=== PATIENT | female | born 1955 | race Caucasian/White ===

== ENCOUNTER 2020-11-29 08:27 | Emergency (ER) | payer MEDICARE, SELFPAY ==
--- NOTE | ~2020-11-29 | XR_ITS ---
EXAMINATION: XR shoulder RT min 2V EXAM DATE: 11/29/2020 09:23 INDICATION: No known recent injury provided at this time. Pain of the right shoulder. TECHNIQUE: The following right shoulder projections obtained: frontal projection with internal rotati on, frontal projection with external rotation, Grashey, and scapular Y view (4+ views). There is no prior study for comparison. FINDINGS: There is small amount of well-corticated ossification along the inferior margin of the gl enoid, could be joint body or calcific tendinosis. This finding has been indicated, marked on the exa mination for review, clinical correlation. There is mild glenohumeral and acromioclavicular joint [place] osteoarthritis. IMPRESSION: 1. Mild right shoulder osteoarthritis. 2. Small ossification, possible rotator cuff calcific tendinosis or joint body. Reviewed, dictated and finalized at location B. 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 Mild right shoulder osteoarthritis. 2. Small ossification, possible rotator cuff calcific tendinosis or joint body .
[2020-11-29 08:46] VITALS: BP 149/91; PULSE 94; RESP 16; TEMP 36.6; O2SAT 98
--- NOTE | 2020-11-29 08:56 | ED.UPPEXIN ---
HPI - Extremity Injury (Upper) General Chief Complaint: Extremity Injury, Upper Stated Complaint: right shoulder pain Time Seen by Provider: 11/29/20 08:55 Source: patient and family Mode of arrival: ambulatory Limitations: no limitations History of Present Illness HPI narrative: Patient is 65 years old white female presents with right shoulder pain for the last 3 months, got worse last night while trying to open a medicine bottle. Patient report that the pain at the lateral side of the deltoid area, worse with movement, better at rest. Patient denies radiation of pain. Patient unable to lift her right arm above her head. Patient denies any fever, chills, nausea, vomiting, chest pain, back pain, shortness of breath, or recent trauma. History of sciatica. Related Data Home Medications Medication Instructions Recorded Confirmed alendronate mg PO 11/29/20 cyclobenzaprine mg 11/29/20 metformin mg PO 11/29/20 pravastatin 11/29/20 11/29/20 Allergies Allergy/AdvReac Type Severity Reaction Status Date / Time azithromycin Allergy Unknown SAMIR Verified 11/29/20 08:49 COLORING tramadol AdvReac Mild Difficulty Verified 11/29/20 09:47 Breathing aspirin AdvReac Unknown ITCHING Verified 11/29/20 08:49 codeine AdvReac Unknown ITCHING Verified 11/29/20 08:49 Review of Systems Review of Systems: Narrative: CONSTITUTIONAL: Denies fever, chills, or sweats. EYES: Denies visual changes, redness, or discharge. ENT: Denies rhinorrhea, congestion, sore throat, or otalgia. CARDIOVASCULAR: Denies chest pain, palpitations, or edema. RESPIRATORY: Denies cough or dyspnea. GASTROINTESTINAL: Denies abdominal pain, nausea, vomiting, or diarrhea. GENITOURINARY: Denies dysuria or hematuria. SKIN: Denies rash or itching. MUSCULOSKELETAL: Denies back pain, joint pain, or myalgia. NEUROLOGIC: Denies headache, numbness, or weakness. PSYCHIATRIC: Denies anxiety or depression. PMFSH Social History Social History Gender identity (if verbalized by the patient): Female Exam Narrative: Exam Narrative: General appearance: Well-developed, well-nourished Skin: Normal color Head: Normocephalic, nontraumatic Eyes: Clear conjunctiva ENT: Oropharynx normal, ears normal, nose normal Neck: Supple, nontender Chest and respiratory: Airway patent, no respiratory distress, no accessory muscle use Heart: Regular rate/rhythm Abdomen: Soft, nontender, no organomegaly, quiet bowel sounds Vascular: Normal peripheral pulses, normal capillary refill. 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, no gross motor deficit Course Course Emergency Course: Improving Vital Signs Vital signs: Vital Signs Temperature 36.6 C 11/29/20 08:46 Pulse Rate 94 11/29/20 08:46 Respiratory Rate 16 11/29/20 08:46 Blood Pressure 149/91 H 11/29/20 08:46 Pulse Oximetry 98 11/29/20 08:46 Temperature 36.6 C 11/29/20 08:46 Pulse Rate 94 11/29/20 08:46 Respiratory Rate 16 11/29/20 08:46 Blood Pressure 149/91 H 11/29/20 08:46 Pulse Oximetry 98 11/29/20 08:46 MDM - Extremity Injury (Upper) MDM Narrative Medical decision making narrative: Patient presents with right shoulder pain, rotator cuff injury is my concern. X-ray right shoulder ordered. Dilaudid IM, ibuprofen orally ordered. Further plan to follow Differential Diagnosis Differential diagnosis: Likely other (Rotator cuff injury, shoulder strain/sprain, arthritis, tendinitis) Imaging Data Radiologist's impression: Impressions Shoulder X-Ray 11/29/20 09:
[2020-11-29] MEDS: HYDROmorphone HCL INJ (*CRX) 1 MG/ML SYR IM (09:26)
[2020-11-29] MEDS: ONDANSETRON HCL ODT 4 MG TABLET PO (09:27)
== END 2020-11-29 09:52 | disposition home or self-care (01) ==
PROVIDERS: Emergency Provider Emergency Medicine; PCP Physician Assistant
DX: S46.001A Unspecified injury of muscle(s) and tendon(s) of the rotator cuff of right shoulder, initial encounter (principal); M19.011 Primary osteoarthritis, right shoulder; X58.XXXA Exposure to other specified factors, initial encounter
CPT/HCPCS: 73030; 96372; 99283; A9270; J1170

== ENCOUNTER 2023-08-15 15:33 | Emergency (ER) | payer MEDICARE, SELFPAY ==
--- NOTE | ~2023-08-15 | XR_ITS ---
EXAMINATION: XR hip LT 2V w AP pelvis DATE: 08/15/2023 19:21 INDICATION: Left hip pain. TECHNIQUE: An anteroposterior view of the pelvis and 2 views of left hip were obtained. COMPARISON: None. FINDINGS: There is lumbar dextroscoliosis and moderate spondylosis. No fracture. There is mild osteoa rthritis of the hips. IMPRESSION: 1. Mild osteoarthritis of the hips. Reviewed, dictated and finalized at location E.
[2023-08-15 15:35] VITALS: BP 135/77; PULSE 106; RESP 18; TEMP 36.2; O2SAT 99
--- NOTE | 2023-08-15 19:12 | ED.LOWEXIN ---
HPI - Extremity Injury (Lower) General Chief Complaint: Extremity Injury, Lower Stated Complaint: left hip and leg pain Time Seen by Provider: 08/15/23 17:40 History of Present Illness HPI Narrative: Patient is a 68-year-old female presenting with left hip pain. States that for the last several days she has had pain in her left buttocks that radiates into her left thigh. Describes it as sharp and shooting. States that it feels similarly to sciatica that she has had on the right before. Denies recent trauma. No numbness or weakness. No saddle anesthesia or bladder or bowel incontinence. No fevers or chills. Denies further complaints. Has been taking Aleve, Advil, Tylenol with some relief. Related Data Home Medications Medication Instructions Recorded Confirmed alendronate 70 mg tablet mg PO 11/29/20 cyclobenzaprine 10 mg tablet mg 11/29/20 metformin 500 mg tablet,extended mg PO 11/29/20 release 24 hr pravastatin 20 mg tablet 11/29/20 11/29/20 Allergies Allergy/AdvReac Type Severity Reaction Status Date / Time azithromycin Allergy Unknown SAMIR Verified 08/15/23 17:43 COLORING tramadol AdvReac Mild Difficulty Verified 08/15/23 17:43 Breathing aspirin AdvReac Unknown ITCHING Verified 08/15/23 17:43 codeine AdvReac Unknown ITCHING Verified 08/15/23 17:43 Review of Systems Review of Systems: All systems reviewed & are unremarkable except as noted in HPI and below PMFSH Social History Social History Gender identity (if verbalized by the patient): Female Exam Narrative: GENERAL: Well-appearing and in no acute distress. Pleasant and cooperative HEAD: Normocephalic, atraumatic. EYES: PERRLA and EOMI. ENT: Grossly unremarkable NECK: Supple. CHEST: No respiratory distress. HEART: Regular rate and rhythm. Normal peripheral pulses. ABDOMEN: Nondistended BACK: No midline tenderness, mild tenderness over left buttock EXTREMITIES: Normal range of motion. No edema. SKIN: Warm, dry, no rash. NEURO: No focal deficits. 5 out of 5 strength in all extremities, no sensory deficits, ambulating normally PSYCH: Normal mood and affect. Course Vital Signs Vital signs: Vital Signs Temperature 97.1 F L 08/15/23 15:35 Pulse Rate 106 H 08/15/23 15:35 Respiratory Rate 18 08/15/23 15:35 Blood Pressure 135/77 08/15/23 15:35 Pulse Oximetry 99 08/15/23 15:35 Oxygen Delivery Room Air 08/15/23 15:35 Temperature 97.1 F L 08/15/23 15:35 Pulse Rate 78 08/15/23 20:31 Respiratory Rate 16 08/15/23 20:31 Blood Pressure 129/90 08/15/23 20:31 Pulse Oximetry 98 08/15/23 20:31 Oxygen Delivery Room Air 08/15/23 15:35 MDM - Extremity Injury (Lower) MDM Narrative Medical decision making narrative: 68-year-old female presenting with left hip pain going into her thigh. Vital stable. Exam remarkable for the above. X-rays show no acute abnormalities. There is evidence of mild arthritis. On reevaluation, the patient is resting comfortably. She feels comfortable going home. Advised that she follow-up with her PCP as well as her orthopedic doctor who is given her back injections before. We will start her on prednisone and send in for some Flexeril. Appropriate return precautions given. Discharged in stable condition. Differential Diagnosis Differential diagnosis: Likely fracture of femur, fracture of hip and other (Sciatica, lumbar radiculopathy) Medical Records Attestation: I reviewed the patient's medical records. Imaging Data Radiologist's impression: ITS Impressions Hip/Pelvis X-Ray 08/15/23 19:24 IMPRESSION: 1. Mild osteoarthritis of the hips. Critical Care Time Critical Care Time Critical Care Time: No Discharge Plan Discharge Clinical Impression: Sciatica of left side Patient Disposition: Home, Self-Care Condition: Stable Instructions: Antibiotic Form, Sciatica (ED)
[2023-08-15] MEDS: CYCLOBENZAPRINE HCL 10 MG TABLET PO (19:26)
[2023-08-15] MEDS: KETOROLAC 30 MG/ML VIAL (*BKC) IM (19:26)
[2023-08-15] MEDS: predniSONE 20 MG TABLET 40 MG PO (19:26)
[2023-08-15 20:31] VITALS: BP 129/90; PULSE 78; RESP 16; O2SAT 98
== END 2023-08-15 20:32 | disposition home or self-care (01) ==
PROVIDERS: Emergency Provider Emergency Medicine; PCP Internal Medicine
DX: M54.32 Sciatica, left side (principal)
CPT/HCPCS: 73502; 96372; 99283; A9270; J1885; J7512

== ENCOUNTER 2024-08-06 09:56 | Emergency (ER) | payer MEDICARE, SELFPAY ==
[2024-08-06 10:02] VITALS: BP 147/76; PULSE 98; RESP 16; TEMP 36.6; O2SAT 100
--- NOTE | 2024-08-06 13:00 | ED.EXTPRO ---
HPI - Extremity Problem General Chief complaint: Extremity Problem,Nontraumatic Stated complaint: R hip pain Time Seen by Provider: 08/06/24 11:55 Source: patient Mode of arrival: ambulatory Limitations: no limitations History of Present Illness HPI Narrative: This is a 69-year-old female, with chronic history of right sided sciatica, presents to the emergency department complaining of right hip pain for the past 2 years. Patient denies any known trauma, fevers, chills or swelling. She states over the last few days she has had increased hip pain with walking and prolonged standing. She describes pain as dull rated 5/10 without radiation. She states she has an upcoming appointment with an orthopedic surgeon 7 days. She has no other complaints at this time. Related Data Home Medications Medication Instructions Recorded Confirmed alendronate 70 mg tablet mg PO 11/29/20 cyclobenzaprine 10 mg tablet mg 11/29/20 metformin 500 mg tablet,extended mg PO 11/29/20 release 24 hr pravastatin 20 mg tablet 11/29/20 11/29/20 Allergies Allergy/AdvReac Type Severity Reaction Status Date / Time azithromycin Allergy Unknown SAMIR Verified 08/06/24 11:33 COLORING tramadol AdvReac Mild Difficulty Verified 08/06/24 11:33 Breathing aspirin AdvReac Unknown ITCHING Verified 08/06/24 11:33 codeine AdvReac Unknown ITCHING Verified 08/06/24 11:33 Review of Systems Review of Systems: All systems reviewed & are unremarkable except as noted in HPI and below PMFSH Past Medical History Medical History Sciatica Surgical History Surgical History No significant past surgical history Social History Social History Gender identity (if verbalized by the patient): Female Exam Narrative: GENERAL: Well-developed, well-nourished, and in no acute distress. HEAD: Normocephalic, atraumatic. EYES: PERRLA and EOMI. CHEST: Clear to auscultation. No respiratory distress. No wheezes rales or rhonchi HEART: Regular rate and rhythm. No murmur heard. Normal peripheral pulses. EXTREMITIES: Tender to palpation over the lateral aspect of the right hip without ecchymosis or erythema. There is no noted crepitus or deformity. Normal range of motion of all extremities. No edema. SKIN: Warm, dry, no rash. NEURO: Alert and oriented x3. No focal deficit. Moving all 4 limbs spontaneously PSYCH: Normal mood and affect. Course Course Emergency Course: 12:30 - The patient's exam is not concerning for fracture or dislocation. I suspect arthritis is the cause of her pain. In the absence of trauma, I do not suspect the need for imaging at this time. Will discharge with lidocaine patches, NSAIDs and a Medrol Dosepak. I discussed the findings and recommendations with the patient. Discussed return and emergency precautions including signs/symptoms of septic arthritis and neurovascular compromise. The patient voiced understanding and agreement with the plan. All questions answered to her satisfaction. Vital Signs Vital signs: Vital Signs Temperature 97.8 F 08/06/24 10:02 Pulse Rate 98 08/06/24 10:02 Respiratory Rate 16 08/06/24 10:02 Blood Pressure 147/76 H 08/06/24 10:02 Pulse Oximetry 100 08/06/24 10:02 Oxygen Delivery Room Air 08/06/24 10:02 Temperature 97.8 F 08/06/24 10:02 Pulse Rate 98 08/06/24 10:02 Respiratory Rate 16 08/06/24 10:02 Blood Pressure 147/76 H 08/06/24 10:02 Pulse Oximetry 100 08/06/24 10:02 Oxygen Delivery Room Air 08/06/24 10:02 MDM - Extremity (Nontraumatic) MDM Narrative Medical decision making narrative: Plan: Pain control, orthopedic surgery follow-up Differential Diagnosis Differential diagnosis: Likely other (Arthritis, other) Discharge Plan Discharge Clinical Impression: Acute pain of right hi
== END 2024-08-06 13:10 | disposition home or self-care (01) ==
PROVIDERS: Emergency Provider Preventive Medicine Aerospace Medicine; PCP Emergency Medicine
DX: M25.551 Pain in right hip (principal)
CPT/HCPCS: 99283

== ENCOUNTER 2024-11-25 11:30 | Outpatient (CLI) | payer MEDICARE, SELFPAY ==
--- NOTE | ~2024-11-25 | XR_ITS ---
AP and lateral views of the right hip Clinical history: Pain Findings: No acute fracture or dislocation is seen. Osseous alignment is anatomic. Right hip joint is intact. Soft tissues are unremarkable. Impression: No significant abnormality is seen. Reviewed, dictated and finalized at location M. OR [employer] Impression: No significant abnormality is seen.
--- OUTSIDE RECORDS SUMMARY | 2024-11-25 12:44 | XMS_ITS | CONTINUITY OF CARE DOCUMENT ---
Author Name reid, reid Address Unknown Organization [facility] Address [address] [place] [address] Phone [phone] Care Team Providers Care Classified Advertising Clerk Name Role Phone Adan SANTOS, Rick Unavailable [phone] ALEXANDRE SANTOS, NICOLE Unavailable [phone] NICOLE SCHROEDER MD Unavailable [phone] PROBLEMS Condition Status Date Provider Notes Peripheral artery disease active Rick werner MD Leg pain, bilateral active Rick Arellano MD Chronic back pain active Rick Arellano MD Menopausal completed - Jose Luis Phillips Sinus tachycardia active Hansa Ramos N P Statin myopathy active Jocelin Sanchez DYSLIPIDEMIA active Jocelin Sanchez Vitamin B12 deficiency active Jocelin antony Vitamin D deficiency active Jocelin ponce Osteoporosis active Jocelin Sanchez peripheral neuropathy completed - Jose Luis Phillips Diabetes mellitus, 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 Jose Luis Phillips Palpitations active Jocelin Sanchez HYPERTENSION--echo ef 55%, 12/2020 active Rick Arellano MD Chest pain, nl nuclear stres s 01/16 active Rick Arellano MD Family History of Hypertension: completed - Jose Luis Phillips ENCOUNTERS Date Type Provider Location Encounter Diag nosis - In-person encounter Office Visit Rick Arellano MD [facility] Peripheral artery disease - In-person encounter Office Visit Rick Arellano MD [facility] Chest pain, nl nuclear stress 01/16 - In-person encounter Office Visit Rick Arellano MD [facility] Chronic back painLeg pain, bilateral - In-person encounter Office Visit Rick Arellano MD [facility] - In-person encounter Office Visit Rick Arellano MD [facility] HYPERTENSION--echo ef 55%, 12/2020 - In-person encounter Office Visit Rick Arellano MD [facility] Chest pain, nl nuclear stress 01/16Diabetes mellitus, Type II w/ peripheral neuropathyperipheral neuropathyMenopausal - In-person encounter Office Visit Rick Arellano MD [facility] Family History of Hypertension: - In-person encounter Office Visit Rick Arellano MD [facility] - In-person encounter Office Visit Marilyn Escamilla MD [facility] Sinus tachycardia - In-person encounter Office Visit Marilyn Escamilla MD [place] [facility] Chest pain, nl nuclear stress 01/16HYPERTENSION--echo ef 55%, alpitationsDiabetes mellitus, Type II w/ peripheral neuropathyOsteoporosisVitamin D deficiencyVitamin B12 deficiencyDYSLIPIDEMIAStatin myopathy VITAL SIGNS Date Observation Value Provider Body Mass Index (Ratio) 23.23 kg/m2 Laurent Arellano MD blood pressure, diastolic 83 mm[Hg] Prema nkLogic blood pressure, systolic 124 mm[Hg] Meli kLogic blood pressure, cuff size regular Ja rret er blood pressure, diastolic 83 mm[Hg] Ja rret blood pressure, systolic 124 mm[Hg] Solo han pulse rate 83 /min John oxygen saturation, oximetry 98 % John respiratory rate E&M 12 /min John weight E&M 127 [lb_av] John height E&M 62 [in_i] [facility] Body Mass Index (Ratio) 24.14 kg/m2 Laurent Arellano MD blood pressure, diastolic 95 mm[Hg] [facility] [place] blood pressure, systolic 158 mm[Hg] [facility] oxygen saturation, oximetry 93 % [facility] pulse rate 105 /min [facility] weight E&M 132 [lb_av] [facility] n respiratory rate E&M 16 /min [facility] blood pressure, cuff size small St patino [place] height E&M 62 [in_i] [facility] Body Mass Index (Ratio) 23.08 kg/m2 Laurent Arellano MD blood pressure, diastolic 80 mm[Hg] Prema nkLogic blood pressure, systolic 144 mm[Hg] Meli kLogic blood pressure, cuff size large Ta cyndi Van blood pressure, diastolic 80 mm[Hg] Ta cyndi Van blood pressure, systolic 144 mm[Hg] Sepulveda kirsten Van oxygen saturation, oximetry 100 % Lesli Van respiratory rate E&M 16 /min Lesli Van pulse rate 72 /min Lesli Van weight E&M 126.2 [lb_av] Lesli Van height E&M 62 [in_i] Lesli Rivas Body Mass Index (Ratio) 25.79 kg/m2 Laurent Arellano MD blood pressure, cuff size regular Ke rri Gruenenfelder blood pressure, diastolic 60 mm[Hg] Ke rri Gruenenfelder blood pressure, systolic 124 mm[Hg] Anne ri [place] respiratory rate E&M 16 /min Lilia G ruenenfelder pulse rate 96 /min Lilia Gruenenfe lder weight E&M 141 [lb_av] Lilia Gruenenfe lder height E&M 62 [in_i] Lilia Gruenenfe lder Body Mass Index (Ratio) 26.55 kg/m2 Laurent Arellano MD blood pressure, diastolic 70 mm[Hg] Naa reynosoOfesudarshan Worrell blood pressure, systolic 120 mm[Hg] Swati Mccord Worrell respiratory rate E&M 16 /min MarcelaGenia Alexandreenson weight E&M 145.2 [lb_av] Gely Alexandre on height E&M 62 [in_i] Gely Louis gatitoon Body Mass Index (Ratio) 26.70 kg/m2 Laurent Arellano MD blood pressure, diastolic 80 mm[Hg] Kr isty Yale blood pressure, systolic 140 mm[Hg] Kri strosario Marcelina oxygen saturation, oximetry 98 % Dayanara Yale pulse rate 100 /min Dayanara Yale respiratory rate E&M 18 /min Dayanara Marcelina blood pressure, cuff size regular Kr isty [place] weight E&M 146 [lb_av] Dayanara Yale height E&M 62 [in_i] Dayanara Marcelina Body Mass Index (Ratio) 25.60 kg/m2 Jose Escamilla MD blood pressure, diastolic 86 mm[Hg] Dov jane Mathis blood pressure, systolic 138 mm[Hg] Regina rogers Mathis oxygen saturation, oximetry 96 % Gilson Mathis respiratory rate E&M 169 /min [facility] 104 /min [facility] E&M 62 [in_i] Gilson Mathis weight E&M 140 [lb_av] [facility] Body Mass Index (Ratio) 26.81 kg/m2 Jose Escamilla MD blood pressure, resting Yes Marcela Worrell blood pressure, diastolic 99 mm[Hg] Naa Worrell blood pressure, systolic 182 mm[Hg] Swati Worrell oxygen saturation, oximetry 97 % Gely Worrell respiratory rate E&M 18 /min Jose Worrell pulse rate 111 /min Gely boykin weight E&M 146.6 [lb_av] Gely fish height E&M 62 [in_i] Gely boykin ALLERGIES Allergy Name Onset Date Reaction Criticality Status HYDROCODONE High Criticality active ERYTHROMYCIN High Criticality active ASA High Criticality active CODEINE High Criticality active RESULTS Date Observation Value Provider Reference Range Interpretation Location LDL cholesterol, serum 186 mg/dL [facility] 0-99 High B-12, serum 1202 pg/mL [facility] [id number] free thyroxine index 2.0 [facility] 1.2-4.9 triiodothyronine resin uptake 29 % [facility] 24-39 thyroxine, serum, total 6.8 ug/dL [facility] 4.5-12.0 thyroid stimulating hormone, serum 0.520 u[IU]/mL [facility] 0.450-4.500 lipoprotein, beta, serum, point, quantitative, calculated See report mg/dL [facility] 0-99 very low density lipoproteins See report mg/dL [facility] 5-40 HDL cholesterol, serum 51 mg/dL [facility] >39 triglyceride, serum, random 438 mg/dL [facility] 0-149 High cholesterol, serum 281 mg/dL [facility] 100-199 High basophil count, absolute 0.0 x10E3/uL [facility] 0.0-0.2 Eosinophil Absolute Count 0.0 X10E3/UL [facility] 0.0-0.4 monocyte count, blood, automated 0.5 X10E3/UL [facility] 0.1-0.9 lymphocyte count, blood, automated 1.7 X10E3/UL [facility] 0.7-3.1 Absolute Neutrophils 3.3 X10E3/UL [facility] 1.4-7.0 basophils as percent of blood leukocytes 0 % [facility] Not Estab. eosinophils as percent of blood leukocytes 1 % [facility] Not Estab. monocytes as percent of blood leukocytes 9 % [facility] Not Estab. lymphocytes as percent of blood leukocytes 30 % [facility] Not Estab. neutrophils as percent of blood leukocytes 60 % [facility] Not Estab. platelet count 285 X10E3/UL [facility] 020-557 5558/07/ 04 red blood cell distribution width 12.9 % [facility] 12.3-15.4 mean corpuscular hemoglobin concentration, RBC 33.0 G/DL [facility] 31.5-35.7 mean corpuscular hemoglobin, RBC 31.6 pg [facility] 26.6-33.0 mean corpuscular volume, RBC 96 fL [facility] 79-97 hematocrit, blood 41.2 % [facility] 34.0-46.6 hemoglobin, blood 13.6 g/dL [facility] 11.1-15.9 erythrocyte (RBC) count 4.31 X10E6/UL [facility] 3.77-5.28 leukocyte count, blood 5.6 X10E3/UL [facility] 3.4-10.8 triglyceride, target level 150 mg/dL Marilyn Escamilla MD HDL cholesterol, serum, target level 40 mg/dL Marilyn Escamilla MD LDL target level 100 mg/dL Marilyn Escamilla MD cholesterol, target level 200 mg/dL Marilyn Escamilla MD HISTORY OF MEDICATION USE Medication Status Instructions Dates Provider Indications Com ments amlodipine 5 mg tablet active TAKE ONE TABLET BY MOUTH EVERY DAY FOR BLOOD PRESSURE John amlodipine 5 mg tablet completed Take 1 tablet by mouth once a day - Olga Middleton Invokana 300 mg tablet active Millicent Cookman Jardiance 25 mg tablet completed TAKE ONE TABLET BY MOUTH EVERY DAY FOR DIABETES - Millicent Parry Tradjenta 5 mg tablet active TAKE ONE TABLET BY MOUTH EVERY DAY FOR DIABETES Shelton Stephen metformin 500 mg tablet active 2 tablet by mouth every night Gely Worrell [facility] NICOTINE 14 MG/24HR TRANSDERMAL PATCH 24 HOUR completed one patch daily - Gely Worrell pravastatin 20 mg tablet active Take 1 tablet by mouth once a day Shelton Stephen aspirin 81 mg tablet,delayed release (DR/EC) active 1 tablet by mouth once a day Rick Arellano MD LOVAZA 1 GM ORAL CAPSULE completed take 1 capsule twice daily - Dayanara Hewitt Pt to purchase OTC FENOFIBRATE MICRONIZED 134 MG ORAL CAPSULE completed One capsule once daily at night - Dayanara Hewitt alendronate 70 mg tablet active 1 tablet by mouth once a week Marilyn Escamilla MD VITAMIN D (ERGOCALCIFEROL) 27028 UNIT ORAL CAPSULE completed 1 cap once a week - Dayanara Hewitt MULTIVITAMINS ORAL CAPSULE completed ONE TAB. DAILY - Dayanara Hewitt ibuprofen 800 mg tablet active 1 tablet by mouth as needed Gely Worrell naproxen sodium 500 mg tablet, ER multiphase 24 hr active 1 tablet by mouth as needed GelyLiv Alexandreenson omeprazole 40 mg capsule,delayed release(DR/EC) active 1 tablet by mouth once a day Gely Worrell ZETIA 10 MG ORAL TABLET completed ONE TAB. DAILY - Gely Worrell losartan 100 mg tablet active Take 0.5 tablet once a day Gely Worrell NORTRIPTYLINE HCL CAPSULE completed 1 tab at bedtime - Dayanara Hewitt SOCIAL HISTORY Date Observation Value Provider social history reviewed E&M revi ewed - no changes required Shelton Stephen social history reviewed E&M revi ewed - no changes required Rick Arellano MD social history E&M S moking History: Donald kruse currently smokes every day. Donald kruse has been counseled to quit. Shelton Stephen exercise type chores, walks Millicent [facility] physical exercise, f requency, days per week 3 /wk Millicent [place] caffeine use, averag e drinks per day 1 /d Millicent [place] smoking/tobacco cess ation, patient education and counseling yes Millicent [place] number of years as a smoker 50 a Millicent [place] smoking history, tot al pack/day 1 Millicent [place] cigarette use yes Millicent Cook an smoking status Current every day smoker S alisha [place] social history reviewed E&M revi ewed - no changes required Shelton Stephen social history E&M S moking History: Donald kruse currently smokes every day. Shelton Stephen number of years as a smoker 52 a Lesli Rivas smoking history, tot al pack/day 1 Lesli Rob cigarette use yes Lesli Rivas smoking status Current every day smoker Ghulam Rivas social history reviewed E&M revi ewed - no changes required Rick Arellano MD social history E&M Smoking Histo ry: P uriah currently smokes every day. P atient has been counseled to quit. Shelton Stephen social history reviewed E&M revi ewed - no changes required Shelton Stephen social history E&M S moking History: P atient currently smokes every day. P atient has been counseled to quit. Jose Luis Phillips social history reviewed E&M revi ewed - no changes required Jose Luis Phillips exercise type chores, walks Lilia galvan physical exercise, f requency, days per week 3 /wk Lilia Layton caffeine use, averag e drinks per day 1 /d Lilia Layton smoking/tobacco cess ation, patient education and counseling yes Lilia Layton number of years as a smoker 45 a Lilia Layton smoking history, tot al pack/day 1 Lilia Layton cigarette use yes Lilia zheng smoking status Current every day smoker Wang vigil Kinjal social history E&M S moking History: P uriah currently smokes every day. P atrosanne has been counseled to quit. Jose Luis Phillips social history reviewed E&M revi ewed - no changes required Jose Luis Phillips exercise type chores, walks Gely Jeffrey physical exercise, f requency, days per week 3 /wk Gely Worrell caffeine use, averag e drinks per day 1 /d Gely Worrell smoking/tobacco cess ation, patient education and counseling yes Gely Worrell number of years as a smoker 45 a Gely Worrell smoking history, tot al pack/day 1 Gely Worrell cigarette use yes Gely fish smoking status Current every day smoker Daniel Worrell social history E&M S moking History: Donald kruse currently smokes every day. Donald kruse has been counseled to quit. Rick Arellano MD social history reviewed E&M revi ewed - no changes required Rick Arellano MD exercise type chores, walks Dayanara Yale physical exercise, f requency, days per week 3 /wk Dayanara Marcelina caffeine use, averag e drinks per day 1 /d Dayanara Yale smoking/tobacco cess ation, patient education and counseling yes Dayanara Meierby number of years as a smoker 45 a Dayanara Hewitt smoking history, tot al pack/day 1 Dayanara Marcelina cigarette use yes Dayanara Yale smoking status Current every day smoker Wang Hewitt exercise type chores, walks Afshan Culclage r physical exercise, f requency, days per week 3 /wk Afshan Culclager caffeine use, averag e drinks per day 1 /d Afshan Culclager smoking/tobacco cess ation, patient education and counseling yes Afshan Culclager smoking history, tot al pack/day 1 Afshan Culclager cigarette use yes Afshan Culclager smoking status Current every day smoker Noe paredes Culclager caffeine use, averag e drinks per day <1 Hansa Ramos SALES COACH social history reviewed E&M revi ewed - no changes required Hansa Ramos NP number of years as a smoker 47 a Gilson Mathis smoking history, tot al pack/day 1 Gilson Mathis cigarette use yes Gilson Mathis smoking status Current every day smoker Wang Mathis social history reviewed E&M revi ewed - no changes required Jocelin Sanchez number of grandchildren Marilyn Escamilla MD number of years as a smoker 47 a Gely Worrell smoking history, tot al pack/day 1 Gely Worrell cigarette use yes Gely fish smoking status Current every day smoker Daniel Worrell FAMILY HISTORY Family Member Condition Full Brother Family History of Di abetes: Father Family History of Co ronary Artery Disease: Father Family History of Hy pertension: Mother Family History of Di abetes: INSURANCE PROVIDERS Payer name Policy type / Coverage type [place] red libertarian ID AARP [facility] ADVANTAGE PLAN 2 (HMO-POS) Medicare [id number] ADVANCE DIRECTIVES Name Date DISCUSSED - NO DECISION MADE TREATMENT PLAN Date Name Performer [id number],S, Shelton Ahmedza i [id number],S, Shelton Ahmedza i [id number],S, Shelton Ahmedza i [id number],S, Shelton Ahmedza i [id number],S, Shelton Ahmedza i [id number],S, Shelton Ahmedza i [id number],N, Shelton Ahmedza i [id number],S, Shelton Ahmedza i [id number],S, Shelton Ahmedza i [id number],S, Shelton Ahmedza i [id number],S, Shelton Ahmedza i [id number],S, Shelton Ahmedza i [id number],S, Shelton Ahmedza i [id number],S, Shelton Ahmedza i [id number],S, Shelton Ahmedza i [id number],S, Shelton Ahmedza i [id number],S, Shelton Ahmedza i [id number],S, Shelton Ahmedza i [id number],B, Shelton Ahmedza i [id number],S, Shelton Ahmedza i [id number],B, Shelton Ahmedza i [id number],S, Shelton Ahmedza i [id number],S, Shelton Ahmedza i Cardiology Shelton Ahmedzai Cardiology Shelton Ahmedzai Cardiology Shelton Ahmedzai Cardiology Shelton Ahmedzai Cardiology Shelton Ahmedzai Cardiology Shelton Ahmedzai Cardiology Shelton Ahmedzai Cardiology Shelton Ahmedzai Cardiology Shelton Ahmedzai Cardiology Shelton Ahmedzai Cardiology Shelton Ahmedzai Cardiology Shelton Ahmedzai Cardiology Shelton Ahmedzai Cardiology Shelton Ahmedzai Cardiology Shelton Ahmedzai Cardiology Shelton Ahmedzai Cardiology Shelton Ahmedzai Cardiology Shelton Ahmedzai Cardiology Shelton Ahmedzai Cardiology NO SHOW Shelton Ahmedzai Cardiology NO SHOW Shelton Ahmedzai Cardiology NO SHOW Shelton Ahmedzai Cardiology NO SHOW Shelton Ahmedzai Cardiology Follow up Jose Luis Nacht Cardiology Follow up Jose Luis Nacht Cardiology Follow up Jose Luis Nacht Cardiology Follow up Jose Luis Nacht Cardiology Follow up Jose Luis Nacht Cardiology Jose Luis Nacht Cardiology Jose Luis Nacht Cardiology Jose Luis Nacht Cardiology Jose Luis Nacht Cardiology [facility] Cardiology Rick Arellano MD Cardiology Rick Arellano MD Cardiology Rick Arellano MD Cardiology Rick Arellano MD Cardiology:Check levels. Hansa Ramos NP Cardiology:Check levels. Hansa Ramos NP Cardiology:Last A1c mid 6's. Currently off metformin. Care per primary Hansa Ramos NP Cardiology:History o f statin myopathy. Last LDL elevated above 170. We aim for LDL <70. At last visit, restarted fenofibrate. Will recheck her lipids today. Hansa Ramos NP Cardiology:Telesentr y monitor showed sinus rhythm and sinus tachycardia with an average rate in the 110's. Will check thyroid panel today, and Vitamin B12 and Vitamin D levels as she has a history of deficiency in both. At this time would not treat sinus tach as she is asymptomatic and etiology remains unclear. Hansa Ramos NP Cardiology:No recurr ence. Stress test showed normal myocardial perfusion. Echocardiogram shows normal LV size and systolic function with an EF of 65. Hansa Ramos NP Cardiology - [place] REVIEW:On fenofi brate. Marilyn Escamilla MD Cardiology - [place] REVIEW:On replac ement therapy. Marilyn Escamilla MD Cardiology - [place] REVIEW:On replac ement therapy. Marilyn Escamilla MD Cardiology - [place] REVI EW:Last A1c mid 6's. Currently off metformin. Marilyn Escamilla MD Cardiology - [place] REVI EW:History of statin myopathy. Last LDL elevated above 170. We aim for LDL <70. Will restart fenofibrate and recheck in a few months. Marilyn Escamilla MD Cardiology - [place] REVI EW:Unclear etiology. Patient denies excessive stimulant usage. Check telesentry monitor. Mariyln Escamilla MD Cardiology - [place] REVI EW:BP today: 182/99. Blood pressure is elevated. No medication changes; will continue to monitor. Check renal doppler r/o renal artery stenosis. Marilyn Escamilla MD Cardiology - [place] REVI EW:Intermittent left chest pressure in a patient with multiple risk factors. Will check stress myoview and echocardiogram. Marilyn Escamilla MD Date Name Arterial Duplex Bi-L ower EX Stress Regadenoson Complete Echo DIRECT LDL Vitamin D, 25-Hydrox y VITAMIN B12/FOLATE, SERUM PANEL CBC (INCLUDES DIFF/P LT) THYROID PANEL WITH T SH, 3RD GENERATION LIPID PANEL Vitamin D, 25-Hydrox y VITAMIN B12/FOLATE, SERUM PANEL CBC (INCLUDES DIFF/P LT) THYROID PANEL WITH T SH, 3RD GENERATION LIPID PANEL Renal Artery Duplex Mobile Cardiac Tele STR - Adenosine Complete Echo HISTORY OF PROCEDURES Procedure Date Procedure Name Provider Procedure Notes S tatus EKG Rick Arellano MD completed EKG Rick Arellano MD completed EKG Rick Arellano MD completed EKG Rick Arellano MD completed EKG Hansa Ramos SALES COACH compl eted Regadenoson, 4 units Marilyn Escamilla MD completed Cardiolite, 2 units Marilyn Escamilla MD completed SPECT Images Rick Arellano MD complet ed Stress EKG Rick Arellano MD completed Mobile Cardiac Telem etry - Tech Marilyn Escamilla MD completed Mobile Cardiac Telem etry - Prof Marilyn Escamilla MD completed EKG Marilyn Escamilla MD complet ed
--- OUTSIDE RECORDS SUMMARY | 2024-11-25 12:44 | XMS_ITS | Patient Health Summary ---
Author Organization [facility] Address [address] [place] [address] Care Team Providers Care Byproducts Supervisor Name Role Phone Arash Batista Primary Care Provider + Note from [facility],non-owned Affiliates and Associated Physician Practices is amultiple site organization consisting of ambulatory clinics and hospital sitesin [place], [place], [place] and [place]. This disclosure is being madepursuant to the Care Everywhere program and may not contain all information available regarding this patient. Last updated 18.[facility] Allergies * Aspirin(Unknown) -High Criticality * Azithromycin(Skin Reactions,Urticaria,Rash,Other) -Medium Criticality * Caffeine(Unknown) * Codeine(Itching,Unknown) -High Criticality * Erythromycin(Unknown) -High Criticality * Hydrocodone(Unknown) -High Criticality * Hydrocodone-Acetaminophen(Itching) -Low Criticality * Hydrocodone-Acetaminophen(Itching) * Tramadol(Shortness of Breath,Anaphylaxis,Other) -High Criticality Medications * Be aware that medications may not be up to date on this document. Alwaysverify current medications with the patient. * pantoprazole EC (Protonix) 40 MG tablet(Started 05/18/2023) Take 1 (one) tablet by mouth once daily * alendronate (Fosamax) 70 MG tablet(Started 07/14/2024) Take 1 (one) tablet by mouth every 7 days before meal * aspirin EC (Ecotrin) 81 MG tablet Take 1 (one) tablet by mouth once daily * vitamin D, ergocalciferol, (Drisdol) 1.25 MG (17582 UT) capsule(Started 09/02/2024) Take 1 (one) capsule by mouth every 7 days * Repatha SureClick 140 MG/ML auto-injector(Started 07/14/2024) Inject 140 (one hundred forty) mg subcutaneously every 14 days * ibuprofen (Motrin) 800 MG tablet Take 1 (one) tablet by mouth every 8 hours as needed for Pain or Fever * Naproxen Sodium 500 MG Take 500 mg by mouth 2 times daily as needed * gabapentin (Neurontin) 300 MG capsule(Started 12/04/2023) Take 1 (one) capsule by mouth at bedtime * Calcium Carb-Cholecalciferol (Oyster Shell Calcium w/D) 500-5 MG-MCG TABS (Started 10/01/2024) Take 2 tablets by mouth once daily * metFORMIN ER 24hr (Glucophage XR) 500 MG tablet(Started 10/15/2024) Take 1 (one) tablet by mouth daily with dinner Ended Medications* Nesina 25 MG tablet(Started 03/06/2024)(Discontinued) Take 1 (one) tablet by mouth once daily * amLODIPine (Norvasc) 5 MG tablet(Discontinued) Take 1 (one) tablet by mouth once daily for blood pressure * Tradjenta 5 MG tablet(Discontinued) Take 1 (one) tablet by mouth once daily * metFORMIN (Glucophage) 500 MG tablet(Discontinued) Take 2 (two) tablets by mouth at bedtime * cloNIDine (Catapres) 0.1 MG tablet(Started 10/01/2024)(Discontinued) Take 1 (one) tablet to 2 (two) tablets by mouth nightly as needed Active Problems Problem Noted Date Diagnosed Date Actinic keratosis 09/15/2024 Allergic rhinitis 09/15/2024 Chronic obstructive pulmonary disease 09/15/2024 Gastroesophageal reflux disease 09/15/2024 Hyperlipidemia 09/15/2024 Hiatal hernia 09/15/2024 Family history of hypertension 09/15/2024 Insomnia 09/15/2024 Muscle atrophy 09/15/2024 Peripheral nerve disease 09/15/2024 Tobacco user 09/15/2024 Disorder of intervertebral disc 09/26/2023 Peripheral artery disease 09/17/2023 Chronic back pain 12/26/2022 Leg pain, bilateral 12/26/2022 Shipley's esophagus with dysplasia 10/16/2022 History of colonic polyps 10/16/2022 Vulvovaginitis 12/13/2021 Herniated lumbar intervertebral disc 01/20/2021 Neuralgia of right sciatic nerve 12/15/2020 Pain of both hip joints 11/06/2019 Sinus tachycardia 04/30/2018 Chest pain, unspecified 02/06/2018 Dyslipidemia 02/06/2018 Myopathy, unspecified 02/06/2018 Osteoporosis 02/06/2018 Vitamin B12 deficiency 02/06/2018 Vitamin D deficiency 02/06/2018 Menopausal flushing 01/30/2018 Palpitations 01/30/2018 Hyperkalemia 01/02/2018 Dental abscess 11/28/2017 Chronic sciatica 08/20/2017 Neuropathy 02/28/2017 Type 2 diabetes mellitus 01/04/2017 Family history of diabetes mellitus 11/06/2016 Essential hypertension 08/31/2016 Resolved Problems Problem Noted Date Diagnosed Date Resolved Date Acute urinary tract infection 09/15/2024 09/29/2024 Hip pain 09/15/2024 11/11/2024 Low back pain 09/15/2024 11/11/2024 Hypertensive disorder 09/15/20242024 Malabsorption of glucose 09/15/2024 Sinusitis 09/15/2024 10/13/2024 Osteopenia 10/15/2019 11/11/2024 Essential (primary) hypertension 02/06/2018 11/11/2024 Elevated hemoglobin A1c 01/02/201810/29 Immunizations * COVID - 19, HISTORIC VACCINE(Given 10/30/2023) * Covid Pfizer primary monovalent 12+ yr 0.3mL Purple cap(Given 10/26/2021) * FLU VACCINE QUAD IIV4 SPLIT 0.25 ML IM(Given 08/08/2022, 09/05/2021, 08/13/2020, 08/07/2019, 08/29/2018, 08/20/2017, 08/08/2016, 08/03/2015) * INFLUENZA VACCINE(Given 08/27/2023) * INFLUENZA VACCINE, HIGH-DOSE, QUADR. (FLUZONE HIGH-DOSE QUADRIVALENT; 65Y+), 0.7 ML (HD-IIV4)(Given 07/14/2024) * PNEUMOCOCCAL PCV VACCINE(Given 07/14/2024) * PNEUMOCOCCAL PPSV23(Given 12/12/2022) * RSV AREXVY 60YR+ 0.5ML(Given 09/05/2023) Social History Tobacco Use Types Packs/Day Years Used Date Smoking Tobacco: Former Cigarettes 1 41.1 S tarted: 2023 Smokeless Tobacco: Never Tobacco Cessation:Counseling Given: Not Answered Alcohol Use Standard Drinks/Week Comments No 0 (1 standard drink = 0.6 oz pur e alcohol) PHQ-2 Answer Date Recorded Patient Health Questionnaire-2 Score 5 11/11/2024 Sex and Gender Information Value Date Recorded Sex Assigned at Not on file Gender Identity Not on file Sexual Orientation Not on file Last Filed Vital Signs Vital Sign Reading Time Taken Comments Blood Pressure 135/79 01/26/2016 11:41 AM CDT Pulse 93 01/26/2016 11:41 AM CDT Temperature - - Respiratory Rate - - Oxygen Saturation - - Inhaled Oxygen Concentration - - Weight 56.7 kg (125 lb) 09/12/2024 9:55 AM PALLETIZER OPERATOR Height 157.5 cm (5' 2 ) 08/18/2024 1:32 PM CDT Body Mass Index 22.86 08/18/2024 1:32 PM CDT Procedures * US JOINT INJECTION OR ASPIRATE(Performed 11/11/2024) Performed for Piriformis syndrome of right side * VAS ARTERIAL ANKLE ARM INDEX(Performed 10/17/2024) Performed for Tobacco abuse, Atherosclerosis of aorta (HCC) * DEXA BONE DENSITY AXIAL SKELETON(Performed 10/17/2024) Performed for Lumbar paraspinal muscle spasm, Chronic midline low back pain with right-sided sciatica, Sacroiliac dysfunction, Trigger point, Tobacco abuse, Atherosclerosis of aorta (HCC) * US JOINT INJECTION OR ASPIRATE(Performed 09/30/2024) Performed for Sacroiliac dysfunction * MRI LUMBAR SPINE WO CONTRAST(Performed 09/06/2024) Performed for Chronic midline low back pain with right-sided sciatica, Sacroiliac dysfunction * XR LUMBAR SPINE 2 OR 3VW(Performed 08/18/2024) Performed for Low back pain with right-sided sciatica, unspecified back pain laterality, unspecified chronicity Results * US JOINT INJECTION OR ASPIRATE (11/11/2024 11:16 AM PALLETIZER OPERATOR) Only the most recent of2 resultswithin the time period is included. Narrative [facility] - 11/11/2024 11:16 AM PALLETIZER OPERATOR This procedure was performed by an Orthopedic physician in a clinic setting. ??Please see the procedure note. Miguel Ryan MD US ORDERABLES [facility] * VAS ARTERIAL ANKLE ARM INDEX (10/17/2024 3:24 PM PALLETIZER OPERATOR) Anatomical Region Laterality Modality Ankle / Foot, Upper Extremity In travascular Ultrasound 10/17/2024 2:39 AM PALLETIZER OPERATOR Narrative Procedure Note Azar Pollack MD - 10/18/2024 Anna Caballero PA-C VASCULAR LAB ORDERA BLES * Dexa Bone Density Axial Skeleton (10/17/2024 1:32 PM PALLETIZER OPERATOR) Anatomical Region Laterality Modality Other 10/17/2024 1:52 PM PALLETIZER OPERATOR Narrative 10/17/2024 1:57 PM PALLETIZER OPERATOR PROCEDURE: ??DEXA BONE DENSITY AXIAL SKELETON DATE/TIME OF EXAM: ??10/17/2024 1:32 PM Indication: M62.830: Lumbar paraspinal muscle spasm M54.41: Chronic midline low back pain with right-sided sciatica G89.29: Chronic midline low back pain with right-sided sciatica M53.3: Sacroiliac dysfunction M79.10: Trigger point Z72.0: Tobacco abuse I70.0: Atherosclerosis of aorta (HCC) COMPARISON: None. LUMBAR SPINE (L1-L4): Bone mineral density (g/cm2): ??0.842 Current T-score: -1.9 ? LEFT FEMORAL NECK: ?? Bone mineral density (g/cm2): ??0.679 Current T-score: -4.2 ? FRAX not reported because: Some T-scores for spine total, hip total, femoral neck at or below -2.5. BONE DENSITY ASSESSMENT: WHO Category: ??Osteoporosis. World Health Organization definitions of standard deviations relative to the mean T-score: Normal bone density = -1.0 and above Osteopenia = between -1.0 and -2.5 Osteoporosis = -2.5 and below > Dictated by Marialuisa Metz (Motor Operator) 10/17/2024 1:52 PM Eduardo Hernandez DO have personally reviewed and interpreted this examination/study. > Interpreting Provider: Eduardo Murillo DO on 10/17/2024 1:57 PM Procedure Note Eduardo Murillo DO - 10/17/2024 PROCEDURE: DEXA BONE DENSITY AXIAL SKELETON DATE/TIME OF EXAM: 10/17/2024 1:32 PM Indication: M62.830: Lumbar paraspinal muscle spasm M54.41: Chronic midline low back pain with right-sided sciatica G89.29: Chronic midline low back pain with right-sided sciatica M53.3: Sacroiliac dysfunction M79.10: Trigger point Z72.0: Tobacco abuse I70.0: Atherosclerosis of aorta (HCC) COMPARISON: None. LUMBAR SPINE (L1-L4): Bone mineral density (g/cm2): 0.842 Current T-score: -1.9 LEFT FEMORAL NECK: Bone mineral density (g/cm2): 0.679 Current T-score: -4.2 FRAX not reported because: Some T-scores for spine total, hip total, femoral neck at or below -2.5. BONE DENSITY ASSESSMENT: WHO Category: Osteoporosis. World Health Organization definitions of standard deviations relative to the mean T-score: Normal bone density = -1.0 and above Osteopenia = between -1.0 and -2.5 Osteoporosis = -2.5 and below > Dictated by Marialuisa Metz (Motor Operator) 10/17/2024 1:52PM Eduardo Hernandez DO have personally reviewed and interpreted this examination/study. > Interpreting Provider: Eduardo Murillo DO on 10/17/2024 1:57 PM Anna Caballero PA-C DEXLoulou ORDERABLES * MRI Lumbar Spine Wo Contrast (09/06/2024 1:53 PM PALLETIZER OPERATOR) Anatomical Region Laterality Modality Spine Magnetic Resonan ce 09/12/2024 12:2 1 PM PALLETIZER OPERATOR Impressions 09/12/2024 12:29 PM PALLETIZER OPERATOR IMPRESSION: 1. Mild dextroscoliosis. 2. 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 > Interpreting Provider: Cindy Buitrago MD on 09/12/2024 12:29 PM Narrative 09/12/2024 12:29 PM PALLETIZER OPERATOR PROCEDURE: ??MRI LUMBAR SPINE WO CONTRAST, DATE/TIME OF EXAM: ??09/06/2024 1:53 PM, LOCATION ??[facility] INDICATION: M54.41: Chronic midline low back pain with right-sided sciatica G89.29: Chronic midline low back pain with right-sided sciatica M53.3: Sacroiliac dysfunction ADDITIONAL CLINICAL INFORMATION: Ordering Provider Reason For Exam: ??Lumbar spine with right L5-S1 radiculopath and right SI joint pain Technologist Note: Additional: EXAMINATION: Magnetic resonance imaging (MRI) of the lumbar spine without contrast TECHNIQUE: MRI of the lumbar spine was performed without intravenous contrast according to standard protocol. FINDINGS: Mild dextroscoliosis. Vertebral bodies are normal in height without evidence of acute fracture. Other than mild degenerative endplate changes at multiple levels, the bone marrow signal is normal. ??The conus medullaris terminates at the level of L1 and the distal spinal cord signal intensity is normal. Degenerative disc and joint disease is noted at multiple levels as detailed below. No soft tissue abnormality is identified. L1-L2: There is moderate disc bulge and ligamentum flavum thickening. There is moderate central canal stenosis. There is mild bilateral facet osteoarthritis. There is moderate right neural foraminal stenosis. L2-L3: There is moderate disc bulge and a broad-based left paracentral disc protrusion causing moderate left lateral recess stenosis with possible impingement of the traversing left L3 nerve root. There is mild central canal stenosis. There is moderate bilateral facet osteoarthritis. There is mild right neural foraminal stenosis. L3-L4: There is moderate disc bulge. There is mild central canal and lateral recess stenosis. There is moderate bilateral facet osteoarthritis. There is moderate left neural foraminal stenosis. L4-L5: There is moderate disc bulge. There is mild central canal and moderate lateral recesses stenosis. There is moderate bilateral facet osteoarthritis. There is mild right and moderate left neural foraminal stenosis. L5-S1: There is moderate disc bulge and a small central disc protrusion. There is moderate central canal and lateral recess stenosis. There is moderate right and mild left facet osteoarthritis. There is severe right and mild left neural foraminal stenosis. Procedure Note Cindy Buitrago MD - 09/12/2024 PROCEDURE: MRI LUMBAR SPINE WO CONTRAST, DATE/TIME OF EXAM: 09/06/2024 1:53 PM, LOCATION [facility] INDICATION: M54.41: Chronic midline low back pain with right-sided sciatica G89.29: Chronic midline low back pain with right-sided sciatica M53.3: Sacroiliac dysfunction ADDITIONAL CLINICAL INFORMATION: Ordering Provider Reason For Exam: Lumbar spine with right L5-S1 radiculopath and right SI joint pain Technologist Note: Additional: EXAMINATION: Magnetic resonance imaging (MRI) of the lumbar spinewithout contrast TECHNIQUE: MRI of the lumbar spine was performed without intravenous contrast according to standard protocol. FINDINGS: Mild dextroscoliosis. Vertebral bodies are normal in height without evidence of acute fracture. Other than mild degenerative endplatechanges at multiple levels, the bone marrow signal is normal. The conusmedullaris terminates at the level of L1 and the distal spinal cord signalintensity is normal. Degenerative disc and joint disease is noted at multiplelevels as detailed below. No soft tissue abnormality is identified. L1-L2: There is moderate disc bulge and ligamentum flavum thickening.There is moderate central canal stenosis. There is mild bilateral facet osteoarthritis. There is moderate right neural foraminal stenosis. L2-L3: There is moderate disc bulge and a broad-based left paracentraldisc protrusion causing moderate left lateral recess stenosis with possible impingement of the traversing left L3 nerve root. There is mild central canal stenosis. There is moderate bilateral facet osteoarthritis. Thereis mild right neural foraminal stenosis. L3-L4: There is moderate disc bulge. There is mild central canal and lateral recess stenosis. There is moderate bilateral facetosteoarthritis. There is moderate left neural foraminal stenosis. L4-L5: There is moderate disc bulge. There is mild central canal and moderate lateral recesses stenosis. There is moderate bilateral facet osteoarthritis. There is mild right and moderate left neural foraminal stenosis. L5-S1: There is moderate disc bulge and a small central disc protrusion. There is moderate central canal and lateral recess stenosis. There is moderate right and mild left facet osteoarthritis. There is severe right and mild left neural foraminal stenosis. IMPRESSION: 1. Mild dextroscoliosis. 2. Advanced multilevel degenerative disc and joint disease in the lumbar spine, causing varying degrees of central canal and neuroforaminastenosis as detailed above. > Interpreting Provider: Cindy Buitrago MD on 09/12/2024 12:29 PM Anna Caballero PA-C MR ORDERABLES * XR Lumbar Spine 2 or 3Vw (08/18/2024 1:22 PM CDT) Anatomical Region Laterality Modality Spine Radiographic Violet ging 08/18/2024 2:39 PM CDT Impressions 08/18/2024 2:42 PM CDT Impression: Chronic degenerative changes associated with multilevel disc space narrowing and dextroconvex scoliosis of the spine. > Interpreting Provider: Tamera Childress MD on 08/18/2024 2:42 PM Narrative 08/18/2024 2:42 PM CDT Examination: XR LUMBAR SPINE 2 OR 3VW Date: 08/18/2024 1:22 PM Indications: M54.41: Low back pain with right-sided sciatica, unspecified back pain laterality, unspecified chronicity Comparison: None Technique: Frontal and lateral radiographs of the lumbar spine were obtained. Findings: Support Devices: None. Spinal alignment: Degenerative changes in the spine associated with asymmetric disc space narrowing leads to dextroconvex scoliosis of the lumbar spine centered at L3. Diffuse osteopenia. Vertebral body heights and disc space: Asymmetric disc space narrowing noted at multiple levels. Posterior elements: Facet joint arthropathic changes are seen. Paraspinal soft tissue: Vascular calcification seen. Procedure Note Tamera Childress MD - 08/18/2024 Examination: XR LUMBAR SPINE 2 OR 3VW Date: 08/18/2024 1:22 PM Indications: M54.41: Low back pain with right-sided sciatica,unspecified back pain laterality, unspecified chronicity Comparison: None Technique: Frontal and lateral radiographs of the lumbar spine were obtained. Findings: Support Devices: None. Spinal alignment: Degenerative changes in the spine associated with asymmetric disc space narrowing leads to dextroconvex scoliosis of the lumbar spine centered at L3. Diffuse osteopenia. Vertebral body heights and disc space: Asymmetric disc space narrowing noted at multiple levels. Posterior elements: Facet joint arthropathic changes are seen. Paraspinal soft tissue: Vascular calcification seen. Impression: Chronic degenerative changes associated with multilevel disc space narrowing and dextroconvex scoliosis of the spine. > Interpreting Provider: Tamera Childress MD on 42:42 PM Anna Caballero PA-C DIAGNOSTIC IMAGING ORDERABLES Care Teams Byproducts Supervisor Relationship Specialty Start Date End Date Arash Batista PA [address] [place] [phone] PCP - General Physician Windows Consultant 01/11/16
--- OUTSIDE RECORDS SUMMARY | 2024-11-25 12:44 | XMS_ITS | Clinical Summary ---
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 This disclosure is being madepursuant to the Care Everywhere program and may not contain all information available regarding this patient. Last updated 18.[facility] [employer] Allergies Active Allergy Reactions Criticality Noted Date Comments Aspirin Unknown High 02/06/2018 Azithromycin Skin Reactions,Urticaria, Rash,Other Medium 01/26/2016 Caffeine Unknown 09/15/2024 Codeine Itching,Unknown High 02/06/2018 Pt reports itching only Erythromycin Unknown High 02/06/2018 Hydrocodone Unknown High 09/10/2018 Hydrocodone-Acetaminoph en Itching Low 01/26/2016 Hydrocodone-Acetaminoph en Itching 01/26/2016 Tramadol Shortness of Breath,Anaphylaxis,O ther High 10/14/2019 sweating Medications * Be aware that medications may not be up to date on this document. Alwaysverify current medications with the patient. Medication Sig Dispensed Refills Start Date End Date Status pantoprazole EC (Protonix) 40 MG tablet Take 1 (one) tablet by mouth once daily 05/18/2023 Active alendronate (Fosamax) 70 MG tablet Take 1 (one) tablet by mouth every 7 days before meal 07/14/2024 Active aspirin EC (Ecotrin) 81 MG tablet Take 1 (one) tablet by mouth once daily Active vitamin D, ergocalciferol, (Drisdol) 1.25 MG (95773 UT) capsule Take 1 (one) capsule by mouth every 7 days 09/02/2024 Active Repatha SureClick 140 MG/ML auto-injector Inject 140 (one hundred forty) mg subcutaneously every 14 days 07/14/2024 Active ibuprofen (Motrin) 800 MG tablet Take 1 (one) tablet by mouth every 8 hours as needed for Pain or Fever Active Naproxen Sodium 500 MG Take 500 mg by mouth 2 times daily as needed Active gabapentin (Neurontin) 300 MG capsule Take 1 (one) capsule by mouth at bedtime 12/04/2023 Active Calcium Carb-Cholecalcif bright (Oyster Shell Calcium w/D) 500-5 MG-MCG TABS Take 2 tablets by mouth once daily 10/01/2024 Active metFORMIN ER 24hr (Glucophage XR) 500 MG tablet Take 1 (one) tablet by mouth daily with dinner 10/15/2024 Active Nesina 25 MG tablet Take 1 (one) tablet by mouth once daily 03/06/2024 5 Discontinue d(List Clean-Up) amLODIPine (Norvasc) 5 MG tablet Take 1 (one) tablet by mouth once daily for blood pressure 5 Discontinue d(List Clean-Up) Tradjenta 5 MG tablet Take 1 (one) tablet by mouth once daily 5 Discontinue d(List Clean-Up) metFORMIN (Glucophage) 500 MG tablet Take 2 (two) tablets by mouth at bedtime 5 Discontinue d(List Clean-Up) cloNIDine (Catapres) 0.1 MG tablet Take 1 (one) tablet to 2 (two) tablets by mouth nightly as needed 10/01/2024 5 Discontinue d(List Clean-Up) Hospital, Clinic, or Other Facility Administered Medication Ordered Dose Route Frequency Start Date End Date Status ROPivacaine (Naropin) 5 MG/ML (0.5%) injection 4 mLIndications:Piriformis syndrome of right side 4 mL IX ONCE 11/11/2024 11/11/2024 En ded triamcinolone acetonide (Kenalog-40) injection 40 mgIndications:Piriformis syndrome of right side 40 mg IX ONCE 11/11/2024 11/11/2024 En ded Active Problems Problem Noted Date Diagnosed Date [...] bilateral 12/26/2022 Shipley's esophagus with dysplasia 10/16/2022 Overview (09/15/2024): Added automatically from request for surgery [id number] History of colonic polyps 10/16/2022 Overview (09/15/2024): Added automatically from request for surgery [id number] Vulvovaginitis 12/13/2021 Herniated lumbar intervertebral disc 01/20/2021 [...] 09/15/2024 Sinusitis 09/15/2024 10/13/2024 Osteopenia 10/15/2019 11/11/2024 Overview (09/15/2024): Removal Reason: now ostoporsis Essential (primary) hypertension 02/06/2018 11/11/2024 Elevated hemoglobin A1c 01/02/201810/29 Encounters Date Type Department Care Team Description 11/11/2024 11:16 AM ENROLLMENT SERVICES VICE PRESIDENT - 11/11/2024 11:59 PM ENROLLMENT SERVICES VICE PRESIDENT Hospital Encounter [facility] DIAGNOSTIC RAD [address] [address] [place] [address] Miguel Ryan MD Discharge Disposition: Home or Self Care 11/11/2024 11:15 AM ENROLLMENT SERVICES VICE PRESIDENT Office Visit [facility] - Orthopedics [address] [place] [address] Miguel Ryan MD Lee, David L, MD Sacroiliac dysfunction (Primary Dx); Piriformis syndrome of right side; Osteoporosis without current pathological fracture, unspecified osteoporosis type 11/11/2024 Travel 10/27/2024 Orders Only [facility] - Orthopedic Surgery [address] [place] [phone] Anna Caballero, PA-Leonora Age related osteoporosis, unspecified pathological fracture presence 10/27/2024 Orders Only [facility] - Orthopedic Surgery [address] [place] [phone] Anna Caballero PA-C Age related osteoporosis, unspecified pathological fracture presence 10/17/2024 2:00 PM ENROLLMENT SERVICES VICE PRESIDENT - 10/17/2024 11:59 PM ENROLLMENT SERVICES VICE PRESIDENT Hospital Encounter [facility] VASCULAR US [address] [place] [address] Anna Caballero PA-Leonora Discharge Disposition: Home or Self Care 10/17/2024 1:00 PM ENROLLMENT SERVICES VICE PRESIDENT - 10/17/2024 1:59 PM ENROLLMENT SERVICES VICE PRESIDENT Hospital Encounter [facility] DIAGNOSTIC RAD OP [address] [place] [address] Anna Caballero PA-C Discharge Disposition: Home or Self Care 09/30/2024 11:17 AM ENROLLMENT SERVICES VICE PRESIDENT - 09/30/2024 11:59 PM ENROLLMENT SERVICES VICE PRESIDENT Hospital Encounter [facility] DIAGNOSTIC RAD CSM [address] [facility] [address] Miguel Ryan MD Discharge Disposition: Home or Self Care 09/30/2024 10:30 AM ENROLLMENT SERVICES VICE PRESIDENT Office Visit [facility] - Orthopedics [address] [place] [place] [address] Miguel Ryan MD Lumbar paraspinal muscle spasm (Primary Dx); Sacroiliac dysfunction; Trigger point; Myalgia 09/30/2024 Travel 09/17/2024 Travel 09/12/2024 10:15 AM ENROLLMENT SERVICES VICE PRESIDENT Office Visit [facility] - Orthopedics [address] [place] [phone] Anna Caballero PA-C Sacroiliac dysfunction (Primary Dx); Lumbar paraspinal muscle spasm; Chronic midline low back pain with right-sided sciatica; Trigger point; Tobacco abuse; Atherosclerosis of aorta (HCC) 09/12/2024 Travel 09/06/2024 12:50 PM ENROLLMENT SERVICES VICE PRESIDENT - 09/06/2024 11:59 PM ENROLLMENT SERVICES VICE PRESIDENT Hospital Encounter [facility] MRI [address] [place] [address] Anna Caballero PA-C Discharge Disposition: Home or Self Care from Last 3 Months Immunizations Name Administration Dates Next Due COVID - 19, HISTORIC VACCINE 10/30/2023 Covid Pfizer primary monoval ent 12+ yr 0.3mL Purple cap 10/26/2021 FLU VACCINE QUAD IIV4 SPLIT 0.25 ML IM 08/08/2022,09/05/2021,08/13/2020,2018,08/29/2018,08/20/2017,08/08/2016,1 INFLUENZA VACCINE 08/27/2023 INFLUENZA VACCINE, HIGH-DOSE , QUADR. (FLUZONE HIGH-DOSE QUADRIVALENT; 65Y+), 0.7 ML (HD-IIV4) 07/14/2024 PNEUMOCOCCAL PCV VACCINE 07/14/2024 PNEUMOCOCCAL PPSV23 12/12/2022 RSV AREXVY 60YR+ 0.5ML 09/05/2023 Social History Tobacco Use Types Packs/Day Years [...] 56.7 kg (125 lb) 09/12/2024 9:55 AM ENROLLMENT SERVICES VICE PRESIDENT Height 157.5 cm (5' 2 ) 08/18/2024 1:32 PM CDT Body Mass Index 22.86 08/18/2024 1:32 PM CDT Plan of Treatment Upcoming Encounters Date Type Department Care Team (Late st Contact Info) Description 01/26/2025 3:40 PM CDT Office Visit [facility] - Endocrinology [address] [place] [address], [place] [phone] Anna Caballero PA-C [address] [place] [address] Norris Ashford MD [facility] [place] [address] 02/10/2025 11:15 AM CDT Office Visit [facility] - Orthopedics [address] [place] [address], [place] [address] Miguel Ryan MD [address] [facility] [address] [place] [address] Health Maintenance Due Date Last Done Comments COLOGUARD (AGES 45-75) - COLON CA SCREENING [address] COLONOGRAPHY - COLON CA SCREENING 1957 FIT - COLON CA SCREENING 1957 FLEX SIG - COLON CA SCREENING 1957 MAMMOGRAM 1957 HEPATITIS C SCREENING 07/16/1975 DIABETES-SERUM CREATININE 1975 DTAP/TDAP/TD VACCINES (1 - Tdap) 1976 DIABETES-STATIN 1997 ZOSTER VACCINE (1 of 2) 2007 COVID-19 VACCINE (4 - 2023- season) 2024 10/26/2021, 04/15/2021, 03/25/2021 DIABETES RETINOPATHY SCREENING 09/15/2024 DIABETES-FOOT EXAM WITH MONOFILAMENT 09/15/2024 DIABETES-HGB A1C 09/15/2024 DEPRESSION SCREENING 10/29/2024 09/12/2024 DIABETES - URINE PROTEIN SCREENING 10/29/2024 MEDICARE AWV ? CALENDAR YEAR 2024 COLONOSCOPY - COLON CA SCREENING 11/07/2032 11/07/2022 Colorectal Cancer Screening 11/07/2032 Respiratory Syncytial Virus (RSV) Vaccine Pt: or over 60 yrs Completed 09/05/2023 INFLUENZA VACCINE Completed 07/14/2024, , 08/08/2022, Additional history exists PNEUMOCOCCAL VACCINE 50+ Completed 07/14/2024, 11/29 BONE DENSITY TESTING Completed 10/17/2024 HEPATITIS B VACCINE Aged Out No longe r eligible based on patient's age to complete this topic HIB VACCINE Aged Out No longer eligi ble based on patient's age to complete this topic HPV VACCINE Aged Out No longer eligi ble based on patient's age to complete this topic MENINGOCOCCAL (Group B) VACCINE Aged Out No longer eligible based on patient's age to complete this topic MENINGOCOCCAL VACCINE Aged Out No carlotta rima eligible based on patient's age to complete this topic Procedures Procedure Name Priority Date/Time Associated Diagnosis Comments US JOINT INJECTION OR ASPIRATE Routine 11/11/2024 11:16 AM ENROLLMENT SERVICES VICE PRESIDENT Piriformis syndrome of right side VAS ARTERIAL ANKLE ARM INDEX Routine 10/17/2024 3:24 PM ENROLLMENT SERVICES VICE PRESIDENT Tobacco abuse Atherosclerosis of aorta (HCC) DEXA BONE DENSITY AXIAL SKELETON Routine 10/17/2024 1:32 PM ENROLLMENT SERVICES VICE PRESIDENT Lumbar paraspinal muscle spasm Chronic midline low back pain with right-sided sciatica Sacroiliac dysfunction Trigger point Tobacco abuse Atherosclerosis of aorta (HCC) US JOINT INJECTION OR ASPIRATE Routine 09/30/2024 11:17 AM ENROLLMENT SERVICES VICE PRESIDENT Sacroiliac dysfunction MRI LUMBAR SPINE WO CONTRAST Routine 09/06/2024 1:53 PM ENROLLMENT SERVICES VICE PRESIDENT Chronic midline low back pain with right-sided sciatica Sacroiliac dysfunction from Last 3 Months Results * US JOINT INJECTION OR ASPIRATE (11/11/2024 11:16 AM ENROLLMENT SERVICES VICE PRESIDENT) Only the most recent of2 resultswithin the time period is included. Narrative [facility] RADIOLOGY - 11/11/2024 11:16 AM ENROLLMENT SERVICES VICE PRESIDENT This procedure was performed by an Orthopedic physician in a clinic setting. ??Please see the procedure note. Miguel Ryan MD US ORDERABLES [facility] RADIOLOGY * VAS ARTERIAL ANKLE ARM INDEX (10/17/2024 3:24 PM ENROLLMENT SERVICES VICE PRESIDENT) Anatomical Region Laterality Modality Ankle / Foot, Upper Extremity In travascular Ultrasound 10/17/2024 2:39 AM ENROLLMENT SERVICES VICE PRESIDENT Narrative Procedure Note Azar Pollack MD - 10/18/2024 Anna Caballero PA-C VASCULAR LAB ORDERA BLES * Dexa Bone Density Axial Skeleton (10/17/2024 1:32 PM ENROLLMENT SERVICES VICE PRESIDENT) Anatomical Region Laterality Modality Other 10/17/2024 1:52 PM ENROLLMENT SERVICES VICE PRESIDENT Narrative 10/17/2024 1:57 PM ENROLLMENT SERVICES VICE PRESIDENT PROCEDURE: ??DEXA BONE DENSITY AXIAL SKELETON DATE/TIME [...] and below > Dictated by Marialuisa Metz (Digital Solutions Architect) 10/17/2024 1:52 PM IEduardo DO have personally reviewed and interpreted this [...] and below > Dictated by Marialuisa Metz (Digital Solutions Architect) 10/17/2024 1:52PM Eduardo Hernandez DO have personally reviewed and interpreted this examination/study. > Interpreting Provider: Eduardo Murillo DO on 10/17/2024 1:57 PM Anna Caballero PA-C DEXA ORDERABLES * MRI Lumbar Spine Wo Contrast (09/06/2024 1:53 PM ENROLLMENT SERVICES VICE PRESIDENT) Anatomical Region Laterality Modality Spine Magnetic Resonan ce 09/12/2024 12:2 1 PM ENROLLMENT SERVICES VICE PRESIDENT Impressions 09/12/2024 12:29 PM ENROLLMENT SERVICES VICE PRESIDENT IMPRESSION: 1. Mild dextroscoliosis. 2. 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
--- OUTSIDE RECORDS SUMMARY | 2024-11-25 12:44 | XMS_ITS | Encounter Summary ---
Author Organization [facility] Address [address] [place] [address] Phone Care Team Providers Care Display Maker Name Role Phone Rick Arellano MD Unavailable Haily Baron MD Primary Care Provider [phone] Encounter Details Date Type Department Care Team (Late st Contact Info) Description 11/24/2024 Telephone [facility] Cardiology [address] 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 Referring Physician: self Ref Ph: If Referring MD is not PCP, list specialty: self Triage Questions Yes No Who/Where/When/Notes Have you ever been diagnosed with cancer, or undergone cancer treatments? [] [x] If 'Yes', Schedulefirst available with Cardio-Oncology If yes where were you treated? Have you ever seen a Motor Vehicle License Clerk in an office setting? [x] [] Pt saw screen printing stencil preparer in [facility], pt doesn't remember Dr. Adan. (First name Kelly) IF SCHEDULING PATIENT WITH MATERNAL Have you had a baby in the last year or are you ? (If yes send to Dr. Myrick for review) [] [] Have you had heart or blood pressure problems during a previous ? (If yes send to Dr. Myrick for review) [] [] Dr. Dariana Townsend Patients only: Are you a hemodialysis or peritoneal dialysis patient? (If yes then patient must be referred from another MD, DO NOT SCHEDULE) [] [] Do you regularly exercise, or play any competitive or recreational sports? (If yes proceed to next question) [] [x] Are your symptoms or concerns associated with this exercise or activity? (If yes schedule in [facility]) [] [x] Patient History Questions Yes No Where/When/Notes Have you EVER been hospitalized for ANY cardiac issue? [] [x] Have you ever had any cardiac testing, imaging, or procedures? (Testing - echo, EKG, stress) (Imaging - Cardiac MRI, CT or calcium scoring) (Procedure - Ablation, Cardioversion, CABG, Cath) [x] [] 2022 or 2023, pt had several tests done, Stress test at [facility]. Have you ever had a sleep study? [] [x] Do you have a device? If yes what type? (Pacemaker, Defibrillator, Implanted Loop Recorder) [] [x] If yes, where and when was device put in? Biological Aide? ([employer], [employer], [employer] [employer]) Appointment Date: 12/01/2024 Provider: Dr. Sarah Location: [facility] [x] Confirm appt date, time, provider and location. [x] Advise pt to arrive 15- 20 min early. [x] Advise patient to bring medications/list, photo ID and insurance card [x] Advise of New PatientPacket being mailed to them. LAR SENIOR CARE PROVIDER documented in this encounter Plan of Treatment Not on file documented as of this encounter Visit Diagnoses Not on filedocumented in this encounter Care Teams Display Maker Relationship Specialty Start Date End Date Haily Baron MD [address] [place] [address] PCP - General Emergency Medicine 11/24/24 [place] [address] [address] Consulting Physician Cardiology 10/16/22 documented as of this encounter
--- OUTSIDE RECORDS SUMMARY | 2024-11-25 12:44 | XMS_ITS | Clinical Summary ---
Author Organization [facility] [place] Address [address] [place] [address] Care Team Providers Care Cloth Washer Operator Name Role Phone Rick Arellano MD Unavailable Haily Baron MD Primary Care Provider Allergies Active Allergy Reactions Criticality Noted Date Comments Aspirin Azithromycin Rash Medium 01/26/2016 Caffeine Codeine Hydrocodone-Acetaminophen Itching Low 01/26/2016 Tramadol Shortness of breath High 10/14/2019 sweating Medications losartan (COZAAR) 100 mg tablet take 1 tablet (100MG) by oral route every day 0 12/05/2011 Active predniSONE (DELTASONE) 20 mg tablet Take 20 mg by mouth daily as needed Active aspirin 81 mg enteric coated tablet Take 81 mg by mouth daily Active canagliflozin (INVOKANA) 300 mg tabletIndicatio ns:type 2 diabetes mellitus Take 300 mg by mouth daily Active pravastatin (PRAVACHOL) 20 mg tablet Take 20 mg by mouth daily Active ergocalciferol (VITAMIN D) 50,000 unit capsule Take 50,000 Units by mouth once a week Active pantoprazole DR (PROTONIX) 40 mg EC tablet TAKE ONE TABLET BY MOUTH EVERY DAY 30 tablet 2 05/18/2023 Active albuterol HFA (PROVENTIL HFA,VENTOLIN HFA,PROAIR HFA) 90 mcg/actuation inhaler 12/16/2015 Active metFORMIN (GLUCOPHAGE) 500 mg tablet Take 500 mg by mouth 2 (two) times a day with meals Active cholecalciferol (VITAMIN D-3) 10,000 unit tablet Active meloxicam (MOBIC) 15 mg tablet Take 15 mg by mouth daily Active gabapentin (NEURONTIN) 100 mg capsule Take 1 capsule (100 mg total) by mouth 3 (three) times a day 90 capsule 10/14/2019 Active Active Problems Problem Noted Date Diagnosed Date Personal history of colonic polyps 10/16/2022 Overview (10/16/2022): Added automatically from request for surgery [id number] Shipley's esophagus with dysplasia 10/16/2022 Overview (10/16/2022): Added automatically from request for surgery [id number] Encounters Date Type Department Care Team Description 11/24/2024 Telephone [facility] Cardiology [address] [place] [address] [place] [address] Alejandra Perez from Last 3 Months Surgical History Surgery Date Site/Laterality Comments CHOLECYSTECTOMY Cholecystectomy CHOLECYSTECTOMY TUBAL LIGATION COLONOSCOPY 8 yras ago Medical History Medical History Date Comments Hx Other Medical h/o colitis Hx Other Medical Shipley's esoph erna Hx Other Medical large tubular a denoma of colon Neuropathy in diabetes (HCC) GERD (gastroesophageal reflux disease) Gastric reflux Hypertension Lumbar facet arthropathy Degenerative disc disease, lumbar Foraminal stenosis of lumbar region Family History Medical History Relation Name Comments Heart disease Father Diabetes Mother Stroke Mother Relation Name Status Comments Father Mother Social History Tobacco Use Types Packs/Day Years Used Date Smoking Tobacco: Every Day Smokeless Tobacco: Never Tobacco Cessation:Ready to Q uit: Not Asked; Counseling Given: Not Answered Comments:Smoking History Packs/day: 20 Packs Alcohol Use Standard Drinks/Week Comments Yes 0 (1 standard drink = 0.6 oz pur e alcohol) social Comments Unknown Sex and Gender Information Value Date Recorded Sex Assigned at Not on file Legal Sex Female 10:12 AM NATIONAL INVESTIGATIVE PRODUCER Gender Identity Not on file Sexual Orientation Not on file 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 Not on file Not on file Not on f ile Obstetrics History Last Filed Vital Signs Vital Sign Reading Time Taken Comments Blood Pressure 122/76 11/07/2022 10:05 AM NATIONAL INVESTIGATIVE PRODUCER Pulse 84 11/07/2022 10:05 AM NATIONAL INVESTIGATIVE PRODUCER Temperature 35.7 ??C (96.2 ??F) 11/07/2022 7:30 AM CS T Respiratory Rate 11 11/07/2022 10:05 AM NATIONAL INVESTIGATIVE PRODUCER Oxygen Saturation 100% 11/07/2022 10:05 AM NATIONAL INVESTIGATIVE PRODUCER Inhaled Oxygen Concentration - - Weight 58.1 kg (128 lb) 11/07/2022 7:30 AM NATIONAL INVESTIGATIVE PRODUCER Height 165.1 cm (5' 5 ) 11/07/2022 7:30 AM NATIONAL INVESTIGATIVE PRODUCER Body Mass Index 21.3 11/07/2022 7:30 AM NATIONAL INVESTIGATIVE PRODUCER Plan of Treatment Health Maintenance Due Date Last Done Comments Breast Cancer Screening-Mammogram 1955 Depression Screening 1955 Hepatitis C Screening 1955 Osteoporosis Screening-Bone Density Scan 1955 Pneumococcal vaccine 65+ (1 of 2 - PCV) 1963 DTaP/Tdap/Td Vaccine (1 - Tdap) 1968 Hepatitis B Screening 1975 Zoster Vaccine (1 of 2) 2007 Well Visit 65+ 2022 Fall Risk Assessment 11/07/2023 11/07/2022 Covid-19 Vaccine (4 - 2023-2 5 season) 2024 10/26/2021, 04/15/2021, 03/25/2021 Influenza Vaccine (#1) 2024 2, 09/05/2021, 08/13/2020, Additional history exists Colon Cancer Screening-Colonoscopy 11/07/2032 11/07/2022, 05/06/2014 Colon Cancer Screening-CT Colonography Discontinued 11/07/2022, 05/06/2014 Colon Cancer Screening-DNA Stool Discontinued 11/07/19 23, 05/06/2014 Colon Cancer Screening-FIT Discontinued 11/07/2022, Colon Cancer Screening-Sigmoidoscopy Discontinued 11/07/2022, 05/06/2014 Procedures Procedure Name Priority Date/Time Associated Diagnosis Comments COLONOSCOPY 11/07/2022 8:49 AM NATIONAL INVESTIGATIVE PRODUCER from Last 3 Months or Most Recently Relevant to Health Maintenance Results * COLONOSCOPY (11/07/2022 8:49 AM NATIONAL INVESTIGATIVE PRODUCER) Anatomical Region Laterality Modality Other Narrative Procedure Note Ghanshyam Salcedo MD - 11/07/2022 8:49 AM CST [facility] Patient Name: Devorah Amaral Procedure Date: 11/07/2022 8:49 AM Date of : 1955 Admit Type: Outpatient Age: 67 Gender: Female Note Status: Finalized Attending MD: Ghanshyam Salcedo M.D. Procedure Date: 11/07/2022 Procedure: Colonoscopy Indications: High risk colon cancer surveillance: Personalhistory of colonic polyps, Last colonoscopy: April 2014 Providers: Ghanshyam Salcedo M.D., Marcela Piña, DRUM WORKER (AnesthesiaStaff), Christa Lora, RICHARD, Sai Torre, Librarian Special Library Referring MD: Ghanshyam Salcedo M.D. Medicines: Monitored Anesthesia Care Complications: No immediate complications. Estimated Blood Loss: Estimated blood loss: none. Procedure: Pre-Anesthesia Assessment: - Airway Examination: normal oropharyngeal airwayand neck mobility. - Respiratory Examination: clear to auscultation. - ASA Grade Assessment: III - A patient with severe systemic disease. - After reviewing the risks and benefits, thepatient was deemed in satisfactory condition to undergo the procedure. - The risks and benefits of the procedure and the sedation options and risks were discussed with the patient. All questions were answered and informed consent was obtained. After I obtained informed consent, the scope was passed under direct vision. Throughout theprocedure, the patient's blood pressure, pulse, and oxygen saturations were monitored continuously. The scopewas passed under direct vision. The Colonoscope was introduced through the anus and advanced to the the cecum, identified by the appendiceal orifice, ileocecal valve and palpation. The colonoscopy was performed with ease. The patient tolerated the procedure well. The quality of the bowelpreparation was fair. The quality of the bowel preparation was evaluated using the BBPS ([place] Bowel Preparation Scale) with scores of: Right Colon = 3 (entiremucosa seen well with no residual staining, smallfragments of stool or opaque liquid), Transverse Colon = 2 (minor amount of residual staining, small fragmentsof stool and/or opaque liquid, but mucosa seen well)and Left Colon = 1 (portion of mucosa seen, but other areas not well seen due to staining, residual stool and/or opaque liquid). The total BBPS score equals6. The quality of the bowel preparation was fair. The bowel preparation used was Clenpiq via split dose instruction. Bowel prep was administered using asplit dose. Findings: The perianal and digital rectal examinations were normal. A 4 mm polyp was found in the hepatic flexure. The polyp was sessile. The polyp was removed with a jumbo cold forceps. Resection andretrieval were complete. Estimated blood loss: none. Four sessile polyps were found in the sigmoid colon. The polyps were3 to 4 mm in size. These polyps were removed with a jumbo cold forceps. Resection and retrieval were complete. Estimated blood loss: none. Impression: - Preparation of the colon was fair. - Preparation of the colon was fair. - One 4 mm polyp at the hepatic flexure, removedwith a jumbo cold forceps. Resected and retrieved. - Four 3 to 4 mm polyps in the sigmoid colon,removed with a jumbo cold forceps. Resected andretrieved. Recommendation: - [facility] results. - Discharge patient to home (ambulatory). - Await pathology results. Procedure Code(s): --- Professional --- 58655, Colonoscopy, flexible; with biopsy, singleor multiple Diagnosis Code(s): --- Professional --- Z86.010, Personal history of colonic polyps D12.3, Benign neoplasm of transverse colon (hepatic flexure or splenic flexure) D12.5, Benign neoplasm of sigmoid colon CPT copyright 2020 [employer]. All rights reserved. The codes documented in this report are preliminary and upon death surveys coder reviewmay be revised to meet current compliance requirements. Electronically signed by Ghanshyam Salcedo MD Ghanshyam Salcedo M.D. 11/07/2022 9:33:55 AM Number of Addenda: 0 Note Initiated On: 11/07/2022 8:49 AM Ghanshyam Salcedo MD ENDOSCOPY PROCEDURES Final Resul t from Last 3 Months or Most Recently Relevant to Health Maintenance Insurance [facility] Address: [facility] [address] [place] [address] [facility] HMO REF [facility] MEDICARE Address: [address] [address] [place] [address] [facility] MDCR HMO REF [facility] MEDICARE Address: [address] [address] [place] [address] Care Teams Cloth Washer Operator Relationship Specialty Start Date End Date Haily Baron MD [address] [place] [address] PCP - General Emergency Medicine 11/24/24 [place] [address] [address] Consulting Physician Cardiology 10/16/22
--- OUTSIDE RECORDS SUMMARY | 2024-11-25 12:44 | XMS_ITS | Clinical Summary ---
Author Organization [facility] Address [address] [place] [address]. [place], [place] [address] [place] [address] Care Team Providers Care Maintainer Plant Name Role Phone None, Provider MD Primary Care Provider Unavaila ble Allergies Active Allergy Reactions Criticality Noted Date Comments Codeine Itching 11/15/2022 Pt reports itching only Tramadol Anaphylaxis High 11/15/2022 Medications tiZANidine HCl (ZANAFLEX) 2 MG Cap Take 1 tablet by mouth 3 (three) times daily. 30 capsule 11/15/2022 Active Social History Tobacco Use Types Packs/Day Years Used Date Smoking Tobacco: Former Cigarettes Smokeless Tobacco: Never Tobacco Cessation:Counseling Given: Not Answered Alcohol Use Standard Drinks/Week Comments Not Currently 0 (1 standard drink = 0.6 oz pur e alcohol) Comments No Sex and Gender Information Value Date Recorded Sex Assigned at Not on file Legal Sex Female 7:15 PM CDT Gender Identity Not on file Sexual Orientation Not on file Last Filed Vital Signs Vital Sign Reading Time Taken Comments Blood Pressure 131/82 11/15/2022 10:41 AM SUPERVISOR ALUM PLANT Pulse 104 11/15/2022 10:41 AM SUPERVISOR ALUM PLANT Temperature 36.4 ??C (97.5 ??F) 11/15/2022 10:[address] Respiratory Rate 18 11/15/2022 10:41 AM SUPERVISOR ALUM PLANT Oxygen Saturation 98% 11/15/2022 10:41 AM SUPERVISOR ALUM PLANT Inhaled Oxygen Concentration - - Weight 58.1 kg (128 lb) 11/15/2022 10:49 AM SUPERVISOR ALUM PLANT Height 160 cm (5' 3 ) 11/15/2022 10:49 AM SUPERVISOR ALUM PLANT Body Mass Index 22.67 11/15/2022 10:49 AM SUPERVISOR ALUM PLANT Plan of Treatment Health Maintenance Due Date Last Done Comments Colorectal Cancer Screening Colonoscopy (10 Years) 1957 Hepatitis C 1975 DTaP, Tdap and Td Vaccines (1 - Tdap) 1976 Mammogram Screening 1997 Zoster Vaccines (1 of 2) 2007 Annual Medicare Wellness Visit 2022 Dexa Scan (General) 2022 Pneumococcal Vaccine: 65+ Years (1 of 1 - PCV) 2022 COVID-19 Vaccine (4 - season) 2024 10/26/2021, 04/15/2021, 03/25/2021 Influenza Adult (#1) 2024 08/08/2022, 09/05/2021, 08/13/2020, Additional history exists RSV Immunization or 60+ Years (1 - 1-dose 75+ series) 2032 Meningococcal B Vaccine Aged Out No l onger eligible based on patient's age to complete this topic Meningococcal Vaccine Aged Out No carlotta rima eligible based on patient's age to complete this topic RSV Immunizations Under 20 Months Aged Out No longer eligible based on patient's age to complete this topic Insurance [address] [place] [address] [facility] Care Teams Maintainer Plant Relationship Specialty Start Date End Date None, Provider, MD PCP - General UNKNOWN PHYSICIAN SPECIALTY 11/15/22
--- OUTSIDE RECORDS SUMMARY | 2024-11-25 12:44 | XMS_ITS | Continuity of Care Document ---
Author Organization [facility] Address [address] [address] [place] [address] Phone Care Team Providers Care Face Burler Name Role Phone Gaurav Dunaway MD Unavailable Unavailable Allergies, Adverse Reactions, Alerts Substance Reaction Status Criticality tramadol Active No Information codeine Active No Information Medications Medication Instructions Dosage Effective Dates (start - stop) Status Comments metformin 500 mg tablet - Active aspirin 81 mg chewable tablet - Active Invokana 300 mg tablet - Active pantoprazole 40 mg tablet,delayed release - Active Nesina 25 mg tablet - Active pravastatin 20 mg tablet - Activ e Vitamin D2 1,250 mcg (50,000 unit) capsule - Active alendronate 70 mg tablet - Activ e Procedures Procedure Date Triamcinolone acet inj NOS OFFICE/OUTPATIENT VISIT EST Triamcinolone acet inj NOS OFFICE/OUTPATIENT VISIT EST POSTOP FOLLOW-UP VISIT REMOVAL OF SPINAL LAMINA OFFICE/OUTPATIENT VISIT EST Triamcinolone acet inj NOS OFFICE/OUTPATIENT VISIT EST Triamcinolone acet inj NOS OFFICE/OUTPATIENT VISIT EST RADEX SPI LUMBOSAC 2/3 VIEWS OFFICE/OUTPATIENT VISIT NEW Advance Directives Directive Yes / No Effective Date File Name Resuscitation Not Answered N/A N/A Life Support Not Answered N/A N/A Intubation Not Answered N/A N/A Antibiotics Not Answered N/A N/A IV Fluid Support Not Answered N/A N/A Tube Feed Not Answered N/A N/A Other Directive N/A N/A WARNING:The information contained in this section is historical and is provided for information only and does not constitute a legal document or any assurance that the information is still accurate. Please verify the information with the angulo of the legal document before using it for clinical purposes. Encounters Encounter Description Practice Location Reason(s) For Visit Diagnoses Date Provider Providers Copied on Encounter OFFICE/OUTPA TIENT VISIT EST [facility], [address] [address], [place], [address], tel:[phone] [facility] Right lumbar radiculopathyLumb ar foraminal stenosisDegenerat ion of lumbar intervertebral disc 4 Gume Nolasco. [address] [facility], [place], [place], [address] . tel:[phone] Referring Provider: iWl Mclaughlin, [address] [place], [address]. tel:[phone] OFFICE/OUTPA TIENT VISIT EST [facility], [address], [address], [place] tel:[phone] [facility] Right lumbar radiculopathySpin al stenosis, lumbar region with neurogenic claudicationOther spondylosis with radiculopathy, lumbar region Jan- 4 Gume Contrerasok. [address] [facility], [place], [place], [id number] . tel:[phone] Referring Provider: Wil Mclaughlin, [address] [place], [address]. tel:[phone] [facility], [address], [address], [place] tel:[phone] [facility] Lumbar radiculopathy Jan- 4 Dunaway Gaurav. [address] [facility], [place], [place], [id number] . tel:[phone] [facility], [address], [address], [place] tel:[phone] [facility] Spinal stenosis, lumbar region with neurogenic claudicationPost- operative state 3 Veronica Bhavik. [address], [place], [place], [id number] , [place]. tel:[phone] Referring Provider: Wil Mclaughlin, [address] [place], [address]. tel:[phone] [facility], [address], [place], [address], [place] tel:[phone] [facility] Spinal stenosis, lumbar region with neurogenic claudication 3 Veronica Bhavik. [address], [place], [place], [id number] , [place]. tel:[phone] [facility], [address], [place], [address], [place] tel:[phone] [facility] Other spondylosis with radiculopathy, lumbar regionSpinal stenosis, lumbar region with neurogenic claudication 3 Veronica Bhavik. [address], [place], [place], [id number] , [place]. tel:[phone] OFFICE/OUTPA TIENT VISIT EST [facility], [address], [place], [address], [place] tel:[phone] [facility] Low back pain, unspecifiedSpinal stenosis, lumbar region with neurogenic claudicationOther spondylosis with radiculopathy, lumbar region 3 Veronica Bhavik. [address], [place], [place], [id number] , [place]. tel:[phone] Referring Provider: Wil Mclaughlin, [address] [place], [address]. tel:[phone] OFFICE/OUTPA TIENT VISIT EST [facility], [address], [place], [address], [place] tel:[phone] [facility] Lumbar radiculopathyLumb ar foraminal stenosis [address] Gume N[address]co[address], [place], [place], [address] . tel:[phone] Referring Provider: Wil Mclaughlin, [address] [place], [address]. tel:[phone] OFFICE/OUTPA TIENT VISIT EST [facility], [address], [place], [address], [place] tel:[phone] [facility] Lumbar radiculopathyOthe r spondylosis with radiculopathy, lumbar regionLumbar foraminal stenosis Dec-0 3 G[address], [place], [place], [id number] . tel:[phone] Referring Provider: Wil Mclaughlin, [address] [place], [address]. tel:[phone] OFFICE/OUTPA TIENT VISIT NEW [facility], [address], [place], [address], [place] tel:[phone] [facility] Low back pain, unspecifiedOther spondylosis with radiculopathy, lumbar region Nov- 3 Veronicaglenn Chisim. [address], [place], [place], [id number] , [place]. tel:[phone] Referring Provider: Wil Mclaughlin, [address] [place], [address]. tel:[phone] Family History Family Member Type Diagnosis Age At Onset Brother Problem Diabetes mellitus Father Problem Cardiovascular disease Father Problem Hypertension Mother Problem Diabetes mellitus Immunizations Vaccine Date Status Comments Pneumo (2 yrs or older)(PPV) administered Source: Other Provider Payers Payer name Insurance type Covered green party ID Lemuel ley(s) [facility] Medicare Complete HMO OT [id number] Social History Type Description Quantity Date Captured Comments Alcohol Use Details Unknown Caffeine Use Details Unknown Tobacco Use Status Light cigarette smok er (1-9 cigs/day) Smoking Status Light tobacco smoker Sex Female Chief Complaint And Reason For Visit No Information Reason For Referral Reason For Referral No Information Plan Of Treatment Date Type Action Status Goal Tobacco cessation counseling completed Goal Tobacco cessation counseling completed Referral Ordered: INJ FORAMEN EPIDURAL L/S spine, lumbar Appointment date/timeframe: 02/25/2024 ordered Referral Ordered: RADEX SPI LUMBOSAC 2/3 VIEWS spine, lumbar ordered Referral Ordered: INJ FORAMEN EPIDURAL L/S RT spine, lumbar ordered History Of Present Illness Encounter Date Complaint History Of Prese nt Illness No Information Functional Status Date Functional Assessmen t No Information Instructions Date Instruction Additional Infor mation No Information Assessments Type Assessment Date assessment Right lumbar radiculopathy assessment Lumbar foraminal stenosis assessment Degeneration of lumbar intervert ebral disc Patient Care Teams Name Effective Dates (start - stop) Status Members No Information
--- OUTSIDE RECORDS SUMMARY | 2024-11-25 12:44 | XMS_ITS | Referral Summary ---
Author Organization [facility] Address [address] [place] [address] Care Team Providers Care Loan Clerk Name Role Phone Rick Arellano MD Unavailable Haily Baron MD Primary Care Provider Encounters Date Type Department Care Team Description 11/24/2024 Telephone [facility] Cardiology [address] [facility] 8th [place] [address] [place] [address] Alejandra Perez from Last 3 Months Allergies Active Allergy Reactions Criticality Noted Date [...] (10/16/2022): Added automatically from request for surgery [id number] Shipley's esophagus with dysplasia 10/16/2022 Overview (10/16/2022): Added automatically from request for surgery [id number] Social History Tobacco Use Types Packs/Day Years [...] on file Legal Sex Female 10:12 AM HEATING AND VENTILATING DRAFTER Gender Identity Not on file Sexual Orientation Not on file 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 Not on file Not on file Not on f ile Last Filed Vital Signs Vital Sign [place] Time Taken Comments Blood Pressure 122/76 11/07/2022 10:05 AM HEATING AND VENTILATING DRAFTER Pulse 84 11/07/2022 10:05 AM HEATING AND VENTILATING DRAFTER Temperature 35.7 ??C (96.2 ??F) 11/07/2022 7:30 AM CS T Respiratory Rate 11 11/07/2022 10:05 AM HEATING AND VENTILATING DRAFTER Oxygen Saturation 100% 11/07/2022 10:05 AM HEATING AND VENTILATING DRAFTER Inhaled Oxygen Concentration - - Weight 58.1 kg (128 lb) 11/07/2022 7:30 AM HEATING AND VENTILATING DRAFTER Height 165.1 cm (5' 5 ) 11/07/2022 7:30 AM HEATING AND VENTILATING DRAFTER Body Mass Index 21.3 11/07/2022 7:30 AM HEATING AND VENTILATING DRAFTER Plan of Treatment Not on file Procedures Procedure Name Priority Date/Time Associated Diagnosis Comments COLONOSCOPY 11/07/2022 8:49 AM HEATING AND VENTILATING DRAFTER from Last 3 Months or Most Recently Relevant to Health Maintenance Results * COLONOSCOPY (11/07/2022 8:49 AM HEATING AND VENTILATING DRAFTER) Anatomical Region Laterality Modality Other Narrative Procedure Note Ghanshyam Salcedo MD - 11/07/2022 8:49 AM CST [facility] Endoscopy Lab Patient Name: Devorah Amaral Procedure Date: 11/07/2022 8:49 AM Date of : 1955 Admit Type: Outpatient Age: 67 Gender: Female Note Status: Finalized Attending MD: Ghanshyam Salcedo M.D. Procedure Date: 11/07/2022 Procedure: Colonoscopy Indications: High risk colon cancer surveillance: Personalhistory of colonic polyps, Last colonoscopy: April 2014 Providers: Ghanshyam Salcedo M.D., Marcela Piña [facility] Christa Lora RN, Sai Torre, Photographic Technician Referring MD: Ghanshyam Salcedo M.D. Medicines: Monitored [...] bowel preparation was evaluated using the BBPS (Imperial Bowel Preparation Scale) with scores of: Right [...] Repeat colonoscopy in 3 - 5 years forsurveillance based on pathology results. - Discharge patient to home (ambulatory). - Await pathology results. Procedure Code(s): --- Professional --- 13469, Colonoscopy, flexible; with biopsy, singleor multiple Diagnosis Code(s): --- Professional --- Z86.010, Personal history of colonic polyps D12.3, Benign neoplasm of transverse colon (hepatic flexure or splenic flexure) D12.5, Benign neoplasm of sigmoid colon CPT copyright 2020 [employer]. All rights reserved. The codes documented in this report are preliminary and upon truck mechanic reviewmay be revised to meet current compliance requirements. Electronically signed by Ghanshyam Salcedo MD Ghanshyam Salcedo M.D. 11/07/2022 9:33:55 AM Number of Addenda: 0 Note Initiated On: 11/07/2022 8:49 AM Ghanshyam Salcedo MD ENDOSCOPY PROCEDURES Final Resul t from Last 3 Months or Most Recently Relevant to Health Maintenance Insurance [facility] MDCR HMO REF [facility] Address: [facility] [address] [place] [address] [facility] Address: [address] [place] [phone] [facility] Address: [place] [phone] Care Teams Loan Clerk Relationship Specialty Start Date End Date Haily Baron MD [facility] [place] [address] PCP - General Emergency Medicine 11/24/24 [place] [id number] [address] Consulting Physician Cardiology 10/16/22
--- OUTSIDE RECORDS SUMMARY | 2024-11-25 12:44 | XMS_ITS | Referral Summary ---
Author Organization [facility] Address [address] [place] [address] Care Team Providers Care Store Detective Name Role Phone Arash Batista Primary Care Provider + Source Comments [facility],non-owned Affiliates and Associated Physician Practices is amultiple site organization consisting of ambulatory clinics and hospital sitesin [place], [place], [place] and [place]. This disclosure is being madepursuant to the Care Everywhere program and may not contain all information available regarding this patient. Last updated 18.[facility] Encounters Date Type Department Care Team Description 11/11/2024 11:16 AM MAGICIAN HELPER - 11/11/2024 11:59 PM MAGICIAN HELPER Hospital Encounter [facility] DIAGNOSTIC RAD CSM [address] [facility] [place] [phone] Miguel Ryan MD Discharge Disposition: Home or Self Care 11/11/2024 Travel 11/11/2024 11:15 AM MAGICIAN HELPER [facility] [address] [place] [phone] Miguel Ryan MD Lee, David L, MD Sacroiliac dysfunction (Primary Dx); Piriformis syndrome of right side; Osteoporosis without current pathological fracture, unspecified osteoporosis type 10/27/2024 Orders Only [facility] [address] [place] [phone] Anna Caballero PA-C Age related osteoporosis, unspecified pathological fracture presence 10/27/2024 Orders Only [facility] [address] [place] [phone] Anna Caballero PA-C Age related osteoporosis, unspecified pathological fracture presence 10/17/2024 2:00 PM MAGICIAN HELPER - 10/17/2024 11:59 PM MAGICIAN HELPER Hospital Encounter [facility] VASCULAR US [address] [place] [address] Anna Caballero PA-C Discharge Disposition: Home or Self Care 10/17/2024 1:00 PM MAGICIAN HELPER - 10/17/2024 1:59 PM MAGICIAN HELPER Hospital Encounter [facility] DIAGNOSTIC RAD OP [address] [place] [address] Anna Caballero PA-C Discharge Disposition: Home or Self Care 09/30/2024 11:17 AM MAGICIAN HELPER - 09/30/2024 11:59 PM MAGICIAN HELPER Hospital Encounter [facility] DIAGNOSTIC RAD CSM [address] [facility] [place] [address] Miguel Ryan MD Discharge Disposition: Home or Self Care 09/30/2024 Travel 09/30/2024 10:30 AM MAGICIAN HELPER Office Visit [facility] Orthopedics [address] [place] [phone] Miguel Ryan MD Lumbar paraspinal muscle spasm (Primary Dx); Sacroiliac dysfunction; Trigger point; Myalgia 09/17/2024 Travel 09/12/2024 Travel 09/12/2024 10:15 AM MAGICIAN HELPER Office Visit [facility] - Orthopedics [address] [place] [phone] Anna Caballero PA-C Sacroiliac dysfunction (Primary Dx); Lumbar paraspinal muscle spasm; Chronic midline low back pain with right-sided sciatica; Trigger point; Tobacco abuse; Atherosclerosis of aorta (HCC) 09/06/2024 12:50 PM MAGICIAN HELPER - 09/06/2024 11:59 PM MAGICIAN HELPER Hospital Encounter [facility] MRI [address] [place] [address] Anna Caballero PA-C Discharge Disposition: Home or Self Care from Last 3 Months Allergies Active Allergy [...] Active vitamin D, ergocalciferol, (Drisdol) 1.25 MG (06793 UT) capsule Take 1 (one) capsule by [...] (09/15/2024): Added automatically from request for surgery [id number] History of colonic polyps 10/16/2022 Overview (09/15/2024): Added automatically from request for surgery [id number] Vulvovaginitis 12/13/2021 Herniated lumbar intervertebral disc 01/20/2021 [...] 02/06/2018 11/11/2024 Elevated hemoglobin A1c 01/02/201810/29 Immunizations Name Administration Dates Next Due COVID - 19, HISTORIC VACCINE 10/30/2023 Covid [employer] primary monoval ent 12+ yr 0.3mL Purple [...] 56.7 kg (125 lb) 09/12/2024 9:55 AM MAGICIAN HELPER Height 157.5 cm (5' 2 ) 08/18/2024 1:32 PM CDT Body Mass Index 22.86 08/18/2024 1:32 PM CDT Plan of Treatment Upcoming Encounters Date Type Department Care Team (Late st Contact Info) Description 01/26/2025 3:40 PM CDT Office Visit [facility] - Endocrinology [address] [place] [address], [place] [phone] Anna Caballero PA-C [address] [place] [address] Norris Ashford MD [address] [place] [address] [place] [address] 02/10/2025 11:15 AM CDT Office Visit [facility] - Orthopedics [address] [place] [address], [place] [address] Miguel Ryan MD [address] [address] Procedures Procedure Name Priority Date/Time Associated Diagnosis Comments US JOINT INJECTION OR ASPIRATE Routine 11/11/2024 11:16 AM MAGICIAN HELPER Piriformis syndrome of right side VAS ARTERIAL ANKLE ARM INDEX Routine 10/17/2024 3:24 PM MAGICIAN HELPER Tobacco abuse Atherosclerosis of aorta (HCC) DEXA BONE DENSITY AXIAL SKELETON Routine 10/17/2024 1:32 PM MAGICIAN HELPER Lumbar paraspinal muscle spasm Chronic midline low back pain with right-sided sciatica Sacroiliac dysfunction Trigger point Tobacco abuse Atherosclerosis of aorta (HCC) US JOINT INJECTION OR ASPIRATE Routine 09/30/2024 11:17 AM MAGICIAN HELPER Sacroiliac dysfunction MRI LUMBAR SPINE WO CONTRAST Routine 09/06/2024 1:53 PM MAGICIAN HELPER Chronic midline low back pain with right-sided sciatica Sacroiliac dysfunction from Last 3 Months Results * US JOINT INJECTION OR ASPIRATE (11/11/2024 11:16 AM MAGICIAN HELPER) Only the most recent of2 resultswithin the time period is included. Narrative [facility] RADIOLOGY - 11/11/2024 11:16 AM MAGICIAN HELPER This procedure was performed by an Orthopedic physician in a clinic setting. ??Please see the procedure note. Miguel Ryan MD US ORDERABLES [facility] RADIOLOG[facility] * VAS ARTERIAL ANKLE ARM INDEX (10/17/2024 3:24 PM MAGICIAN HELPER) Anatomical Region Laterality Modality Ankle / Foot, Upper Extremity In travascular Ultrasound 10/17/2024 2:39 AM MAGICIAN HELPER Narrative Procedure Note Azar Pollack MD - 10/18/2024 Anna Caballero PA-C VASCULAR LAB ORDERA BLES * Dexa Bone Density Axial Skeleton (10/17/2024 1:32 PM MAGICIAN HELPER) Anatomical Region Laterality Modality Other 10/17/2024 1:52 PM MAGICIAN HELPER Narrative 10/17/2024 1:57 PM MAGICIAN HELPER PROCEDURE: ??DEXA BONE DENSITY AXIAL SKELETON DATE/TIME [...] and below > Dictated by Marialuisa Metz (Home Appliance Technician) 10/17/2024 1:52 PM Eduardo Hernandez DO have [...] and below > Dictated by Marialuisa Metz (Home Appliance Technician) 10/17/2024 1:52PM IEduardo DO have personally reviewed and interpreted this examination/study. > Interpreting Provider: Eduardo Murillo DO on 10/17/2024 1:57 PM Anna Caballero PA-C DEXA ORDERABLES * MRI Lumbar Spine Wo Contrast (09/06/2024 1:53 PM MAGICIAN HELPER) Anatomical Region Laterality Modality Spine Magnetic Resonan ce 09/12/2024 12:2 1 PM MAGICIAN HELPER Impressions 09/12/2024 12:29 PM MAGICIAN HELPER IMPRESSION: 1. Mild dextroscoliosis. 2. 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 > Interpreting Provider: Cindy Buitrago MD on 09/12/2024 12:29 PM Narrative 09/12/2024 12:29 PM MAGICIAN HELPER PROCEDURE: ??MRI LUMBAR SPINE WO CONTRAST, DATE/TIME OF EXAM: ??09/06/2024 1:53 PM, LOCATION ??[facility] INDICATION: M54.41: Chronic midline low back [...] DATE/TIME OF EXAM: 09/06/2024 1:53 PM, LOCATION [facility] INDICATION: M54.41: Chronic midline low back [...] ORDERABLES from Last 3 Months Care Teams Store Detective Relationship Specialty Start Date End Date Arash Batista PA [address] [place] [phone] PCP - General Physician Nursing Agency Manager 01/11/16
--- OUTSIDE RECORDS SUMMARY | 2024-11-25 12:45 | XMS_ITS | Data Portability ---
Author Organization K[facility] Ana MILLER Address [address] [facility] [place] [address] Assessment No assessment recorded. Plan of Treatment Reminders Order Date Submit Date Provider Last Modified By Organization Details Last Modified Time Details Appointments ACUTE 15 2024 03:45P M Haily Baron MD Not available Not available Not available ANY 30 2024 01:30P M Haily Baron MD Not available Not available Not available Lab HbA1c (hemogl obin A1c), blood 2023 024 [facility] In-Office Order, Internal Use Only DO Not Attach Compendium DO Not Attach Compendium, Do Not Delete/merge, [id number] 12/17/2023 15:43:46 culture , urine 2023 024 [facility], [address] [place] [address], [address], [place], [address], 12/19/2023 06:18:14 CBC 2023 024 [facility], [address] [facility], [address], [place], [address], 12/18/2023 08:23:56 TSH + free T4, serum 2023 024 [facility], [address] [facility], [address], [place], [address], 12/18/2023 08:23:54 CMP, serum or plasma 2023 024 TATIAAN LE, Nick[address], [address], [place], [address], 12/18/2023 08:23:55 HbA1c (hemogl obin A1c), blood 2023 024 TATIANA GARCIARP, [facility]olas [facility] [address], [address], [place], [address], 05/17/2024 09:12:29 albumin /creati nine, mass ratio, urine 2023 024 TATIANA LE, Nickolas [address], [address], [place], [address], 05/17/2024 09:12:27 TSH, ultra-s ensitiv e, serum 2023 024 TATIANA LE, Nickolas [address], [address], [place], [address], 05/17/2024 09:12:28 lipid panel, serum 2023 024 TATIANA LE, [facility] [address], [address], [place], [address], 05/17/2024 09:12:28 erythro cyte sedimen tation rate by westerg hayley method 2023 024 TATIANA LE, Nick[address], [address], [place], [address], 05/17/2024 09:12:30 CBC 2023 024 TATIANA LE, Nickolas [address]pp [address], [address], [place], [address], 05/17/2024 09:12:30 hepatic functio n panel, serum 2023 024 [facility], [address], [address], [place], [address], 11/18/2024 10:45:25 lipid panel, serum 2023 024 [facility], [address], [address], [place], [address], 11/04/2024 09:53:54 Referral orthope dic spine surgeon referra l - Please call patient for appoint ment, thanks! [address], [address], [place], [address], 08/13/2023 10:26:57 orthope dic spine surgeon referra l 2023 024 [facility], [address] [place], [address], 08/18/2024 16:58:21 Procedures None recorde d. Surgeries None recorde d. Imaging MRI, lumbar spine, w/o contras t 2022 023 [facility] ([facility]), [address] [place], [address], 11/12/2023 15:53:49 LDCT, chest, for lung cancer screeni ng 2023 024 [facility] ([facility]), [address] [place], [address], 01/17/2024 10:54:36 bone density 2023 024 [facility] ([facility]), [address] [place], [address], 11/18/2024 12:03:26 XR, foot - diabeti c, redness and swellin g dorsal foot 2023 024 [facility] ([facility]), [address] [place], [address], 04/15/2024 14:20:17 [employer] , bilater al 2023 024 [facility] ([facility]), [address] [place], [address], 11/18/2024 12:03:26 Medication Orders meloxic am 15 mg tablet 2022 024 [facility], [address] [place] [address], [id number], 04/08/2024 11:29:36 Pennsai d 20 mg/gram /actuat ion (2 %) topical soln in metered -dose pump 2022 024 [facility], [address] [place] [address], [id number], 04/08/2024 11:30:04 tizanid ine 4 mg tablet 2022 023 [facility], [address] [place] [address], [id number], 04/08/2024 11:29:41 gabapen tin 300 mg capsule 2022 023 [email or web address], [address] [place] [address], [id number], 04/08/2024 17:43:07 Calcium 500 + D 500 mg-5 mcg (200 unit) tablet 2022 023 [email or web address], [address] [place] [address], [id number], 05/13/2024 10:40:10 pregaba cristiana 100 mg capsule 2022 023 [facility], [address] [place] [address], [id number], 04/08/2024 11:29:17 albuter ol sulfate HFA 90 mcg/act uation aerosol inhaler 2022 023 [facility], [address] [place] [address], [id number], 12/17/2023 11:52:50 lidocai ne 4 % topical cream 2023 024 [facility], [address] [place] [address], [id number], 12/17/2023 15:59:50 Bactrim DS 800 mg-160 mg tablet 2023 024 [facility], [address] [place] [address], [id number], 04/08/2024 11:29:31 ergocal ciferol (vitami n D2) 1,250 mcg (50,000 unit) capsule 2023 024 [facility], [address] [place] [address], [id number], 08/07/2024 09:54:27 cephale josh 500 mg capsule 2023 024 [facility], [address] [place] [address], [id number], 07/14/2024 11:36:01 Invokan a 300 mg tablet 2023 024 [email or web address], [address] [place] [address], [id number], 06/05/2024 11:12:36 metform in ER 500 mg tablet, extende d release 24 hr 2023 024 [facility], [address] [place] [address], [id number], 07/09/2024 12:08:24 Nesina 25 mg tablet 2023 024 [facility] [address] [place] [address], [id number], 06/04/2024 11:47:25 prednis one 20 mg tablet 2023 024 [facility], [address] [place] [address], [id number], 07/14/2024 11:29:16 ketorol ac 30 mg/mL (1 mL) injecti on solutio n 2023 024 [email or web address] Not available 07/14/2024 11:29:27 albuter ol sulfate HFA 90 mcg/act uation aerosol inhaler 2023 [facility], [address] [place] [address], [id number], 04/08/2024 18:03:50 pravast atin 20 mg tablet 2023 024 [facility], [address] [place] [address], [id number], 07/14/2024 14:44:40 pantopr azole 40 mg tablet, delayed release 2023 024 [facility], [address] [place] [address], [id number], 07/09/2024 12:08:23 clonidi ne HCl 0.1 mg tablet 2023 024 [facility], [address] [place] [address], [id number], 11/06/2024 14:40:42 nicotin e 21 mg/24 hr daily transde rmal patch 2023 024 [facility], [address] [place] [address], [id number], 07/15/2024 09:29:18 alendro adrian 70 mg tablet 2023 024 [facility], [address] [place] [address] [place], [id number], 08/07/2024 09:54:25 Calcium 500 + D 500 mg-5 mcg (200 unit) tablet 2023 024 [facility], [address] [place] [address], [id number], 10/01/2024 13:27:42 metform in ER 500 mg tablet, extende d release 24 hr 2023 024 [facility], [address] [place] [address], [id number], 11/10/2024 13:19:45 Repatha SureCli ck 140 mg/mL subcuta neous pen injecto r 2023 [facility], [address] [place] [address], [id number], 09/18/2024 12:32:29 acetami nophen 300 mg-code ine 30 mg tablet 2023 024 [facility], [address] [place] [address], [id number], 07/15/2024 13:35:51 pantopr azole 40 mg tablet, delayed release 2023 024 [facility], [address] [place] [address], [id number], 10/01/2024 13:27:45 Patient TargetsNo targets recorded. Patient Instructions Encounter Date Encounter Id Patient Instructions Last Modified By Organization Details Last Modified Time 07/16/2023 [id number] Quitting Tobacco : Care Instructions [facility] Not available 07/16/2023 15:27:18 tetanus and diphtheria booster: care instructions [facility] Not available 07/16/2023 15:27:17 chronic obstructive pulmonary disease (COPD): care instructions [facility] Not available 07/16/2023 15:27:17 learning about copd and how to prevent lung infections [facility] Not available 07/16/2023 15:27:17 08/27/2023 [id number] influenza (flu) vaccine: care instructions [facility] Not available 08/27/2023 17:01:58 12/17/2023 [id number] Quitting Tobacco : Care Instructions [facility] Not available 12/17/2023 12:51:36 learning about type 2 diabetes si Not available 12/17/2023 15:43:46 type 2 diabetes: care instructions [facility] Not available 12/17/2023 15:43:46 chest pain: care instructions si Not available 12/17/2023 12:51:36 Urinary Tract Infection (UTI) in Women: Care Instructions [facility] Not available 12/17/2023 12:51:36 fatigue: care instructions [facility] Not available 12/17/2023 12:51:36 Reason for Referral Orthopedic Spine Surgeon Ref erral for Chronic sciatica Please call patient for appointment, thanks! Referring Physician: Wil Mclaughlin, Internal Medicine, Encounter Date: 07/16/2023 Orthopedic Spine Surgeon Ref erral for Right side sciatica Referring Physician: Haily Baron, Family Medicine, Encounter Date: 07/14/2024 Results Created Date Observation Date Name Description Value Unit Range Abnormal Flag Note LastModifiedBy Organization Detail LastModifiedTime 12/17/1912/18/2023 TSH+F REE T4 TSH 0.410 uIU/m L 0.450- 4.500 below low normal Not Available [facility] ([facility]) [address] [place], [address], 12/18/2023 08:23:54 12/17/19 24 12/18/2023 TSH+F REE T4 T4,free(dire ct) 1.06 NG/dL 0.82-1 .77 Not Available [facility] ([facility]) [address] [place], [address], 12/18/2023 08:23:54 12/17/19 24 12/18/2023 COMP. METAB OLIC PANEL (14) glucose 92 mg/dL 70-99 Not Available [facility] ([facility]) [address] [place], [address], 12/18/2023 08:23:55 12/17/19 24 12/18/2023 COMP. METAB OLIC PANEL (14) BUN 15 mg/dL 8-27 Not Available [facility] ([facility]) [address] [facility], [address], 12/18/2023 08:23:55 12/17/19 24 12/18/2023 COMP. METAB OLIC PANEL (14) creatinine 0.86 mg/dL 0.57-1 .00 Not Available [facility] ([facility]) [address] [facility], [address], 12/18/2023 08:23:55 12/17/19 24 12/18/2023 COMP. METAB OLIC PANEL (14) eGFR 74 mL/mi n/1.7 3 >59 Not Available [facility] ([facility]) [address] [place], [address], 12/18/2023 08:23:55 12/17/19 24 12/18/2023 COMP. METAB OLIC PANEL (14) BUN/creatini ne ratio 17 12-28 Not Available [facility]) [address] [place], [address], 12/18/2023 08:23:55 12/17/19 24 12/18/2023 COMP. METAB OLIC PANEL (14) sodium 140 mmol/ L 134-14 4 Not Available [facility] ([facility]) [address] [place], [address], 12/18/2023 08:23:55 12/17/19 24 12/18/2023 COMP. METAB OLIC PANEL (14) potassium 4.1 mmol/ L 3.5-5. 2 Not Available [facility] ([facility]) [address] [place], [address], 12/18/2023 08:23:55 12/17/19 24 12/18/2023 COMP. METAB OLIC PANEL (14) chloride 98 mmol/ L 96-106 Not Available [facility] ([facility]) [address] [facility], [address], 12/18/2023 08:23:55 12/17/19 24 12/18/2023 COMP. METAB OLIC PANEL (14) carbon dioxide, total 22 mmol/ L 20-29 Not Available [facility] ([facility]) [address] [facility], [address], 12/18/2023 08:23:55 12/17/19 24 12/18/2023 COMP. METAB OLIC PANEL (14) calcium 10.1 mg/dL 8.7-10 .3 Not Available [facility] ([facility]) [address] [facility], [address], 12/18/2023 08:23:55 12/17/19 24 12/18/2023 COMP. METAB OLIC PANEL (14) protein, total 6.9 g/dL 6.0-8. 5 Not Available [facility] ([facility]) [address] [place], [address], 12/18/2023 08:23:55 12/17/19 24 12/18/2023 COMP. METAB OLIC PANEL (14) albumin 4.7 g/dL 3.9-4. 9 Not Available [facility] ([facility]) [address] [place], [address], 12/18/2023 08:23:55 12/17/19 24 12/18/2023 COMP. METAB OLIC PANEL (14) globulin, total 2.2 g/dL 1.5-4. 5 Not Available [facility] ([facility]) [address] [place], [address], 12/18/2023 08:23:55 12/17/19 24 12/18/2023 COMP. METAB OLIC PANEL (14) A/G ratio 2.1 1.2-2. 2 Not Available [facility] ([facility]) [address] [facility], [address], 12/18/2023 08:23:55 12/17/19 24 12/18/2023 COMP. METAB OLIC PANEL (14) bilirubin, total 0.4 mg/dL 0.0-1. 2 Not Available [facility] ([facility]) [address] [facility], [address], 12/18/2023 08:23:55 12/17/19 24 12/18/2023 COMP. METAB OLIC PANEL (14) alkaline phosphatase 66 IU/L 44-121 Not Available [facility] [address] [facility], [place], [address], 12/18/2023 08:23:55 12/17/19 24 12/18/2023 COMP. METAB OLIC PANEL (14) AST (SGOT) 22 IU/L 0-40 Not Available [facility] ([facility]) [address] [facility], [place], [address], 12/18/2023 08:23:55 12/17/19 24 12/18/2023 COMP. METAB OLIC PANEL (14) ALT (SGPT) 16 IU/L 0-32 Not Available [facility] ([facility]) [address] [place], [address], 12/18/2023 08:23:55 12/17/19 24 12/18/2023 CBC, PLATE LET, NO DIFFE RENTI AL WBC 9.3 x10e3 /uL 3.4-10 .8 Not Available [facility] ([facility]) [address] [facility], [place], [address], 12/18/2023 08:23:56 12/17/19 24 12/18/2023 CBC, PLATE LET, NO DIFFE RENTI AL RBC 5.28 x10e6 /uL 3.77-5 .28 Not Available [facility] ([facility]) [address] [facility], [place], [address], 12/18/2023 08:23:56 12/17/19 24 12/18/2023 CBC, PLATE LET, NO DIFFE RENTI AL hemoglobin 15.6 g/dL 11.1-1 5.9 Not Available [facility] ([facility]) [address] [facility], [place], [address], 12/18/2023 08:23:56 12/17/19 24 12/18/2023 CBC, PLATE LET, NO DIFFE RENTI AL hematocrit 47.7 % 34.0-4 6.6 above high normal Not Available [facility] ([facility]) [address] [facility], [place], [address], 12/18/2023 08:23:56 12/17/19 24 12/18/2023 CBC, PLATE LET, NO DIFFE RENTI AL MCV 90 fL 79-97 Not Available [facility] ([facility]) [address] [facility], [place], [address], 12/18/2023 08:23:56 12/17/19 24 12/18/2023 CBC, PLATE LET, NO DIFFE RENTI AL MCH 29.5 pg 26.6-3 3.0 Not Available [facility] ([facility]) [address] [facility], [place], [address], 12/18/2023 08:23:56 12/17/19 24 12/18/2023 CBC, PLATE LET, NO DIFFE RENTI AL MCHC 32.7 g/dL 31.5-3 5.7 Not Available [facility] ([facility]) [address] [facility], [place], [address], 12/18/2023 08:23:56 12/17/19 24 12/18/2023 CBC, PLATE LET, NO DIFFE RENTI AL RDW 12.2 % 11.7-1 5.4 Not Available [facility] ([facility]) [address] [facility], [place], [address], 12/18/2023 08:23:56 12/17/19 24 12/18/2023 CBC, PLATE LET, NO DIFFE RENTI AL platelets 334 x10e3 /uL 150-45 0 Not Available [facility] ([facility]) [address] [facility], [place], [address], 12/18/2023 08:23:56 12/17/19 24 12/19/2023 URINE CULTU RE, ROUTI NE urine culture, routine Final report Not Available [facility] ([facility]) [address] [facility], [place], [address], 12/19/2023 06:18:13 12/17/19 24 12/19/2023 URINE CULTU RE, ROUTI NE result 1 Commen t Mixed uroge nital misti Less than 10,00 0 colon ies/m L Not Available [facility] ([facility]) [address] [facility], [place], [address], 12/19/2023 06:18:13 12/17/19 24 12/17/2023 HbA1c (hemo globi n A1c), blood HbA1c 6.4 Not Available In-Office Order Internal Use Only DO Not Attach Compendium DO Not Attach Compendium, Do Not Delete/merge, [id number] 12/17/2023 15:40:07 05/16/20 24 05/17/2024 ALBUM IN/CR EATIN INE RATIO ,URIN E creatinine, urine 60.4 mg/dL notest ab. Not Available [facility] ([facility]) [address] [facility], [place], [address], 05/17/2024 09:12:27 05/16/20 24 05/17/2024 ALBUM IN/CR EATIN INE RATIO ,URIN E albumin, urine 11.9 ug/mL notest ab. Not Available [facility] ([facility]) [address] [place], [address], 05/17/2024 09:12:27 05/16/20 24 05/17/2024 ALBUM IN/CR EATIN INE RATIO ,URIN E alb/creat ratio 20 mg/g_ creat 0-29 Kimber l: 0 - 29 Moder ately incre ased: 30 - 300 Sever elsa incre ased: >300 Not Available [facility] ([facility]) [address] [place], [address], 05/17/2024 09:12:27 05/16/20 24 05/17/2024 LIPID PANEL cholesterol, total 254 mg/dL 100-19 9 above high normal Not Available [facility] ([facility]) [address] [place], [address], 05/17/2024 09:12:28 05/16/20 24 05/17/2024 LIPID PANEL triglyceride s 170 mg/dL 0-149 above high normal Not Available [facility] ([facility]) [address] [place], [address], 05/17/2024 09:12:28 05/16/20 24 05/17/2024 LIPID PANEL HDL cholesterol 50 mg/dL >39 Not Available [facility] [address] [place], [address], 05/17/2024 09:12:28 05/16/20 24 05/17/2024 LIPID PANEL VLDL cholesterol janeth 31 mg/dL 5-40 Not Available [facility]) [address] [place], [address], 05/17/2024 09:12:28 05/16/20 24 05/17/2024 LIPID PANEL LDL chol calc ([facility]) 173 mg/dL 0-99 above high normal Not Available [facility] ([facility]) [address] [place], [address], 05/17/2024 09:12:28 05/16/20 24 05/17/2024 TSH RFX ON ABNOR MAL TO FREE T4 TSH 0.495 uIU/m L 0.450- 4.500 Not Available [facility] ([facility]) [address] [place], [address], 05/17/2024 09:12:28 05/16/20 24 05/17/2024 HEMOG LOBIN A1C hemoglobin A1C 7.1 % 4.8-5. 6 above high normal Predi abete s: 5.7 - 6.4 Diabe briseida: >6.4 Glyce julia contr ol for adult s with diabe briseida: <7.0 Not Available [facility] ([facility]) [address] [facility], [place], [address], 05/17/2024 09:12:29 05/16/20 24 05/17/2024 SEDIM ENTAT ION RATE- WESTE RGREN sedimentatio n rate-westerg hayley 2 mm/HR 0-40 Not Available [facility]) [address] [facility], [place], [address], 05/17/2024 09:12:30 05/16/20 24 05/17/2024 CBC, PLATE LET, NO DIFFE RENTI AL WBC 7.8 x10e3 /uL 3.4-10 .8 Not Available [facility] ([facility]) [address] [facility], [place], [address], 05/17/2024 09:12:30 05/16/20 24 05/17/2024 CBC, PLATE LET, NO DIFFE RENTI AL RBC 4.93 x10e6 /uL 3.77-5 .28 Not Available [facility] ([facility]) [address] [place], [address], 05/17/2024 09:12:30 05/16/20 24 05/17/2024 CBC, PLATE LET, NO DIFFE RENTI AL hemoglobin 14.4 g/dL 11.1-1 5.9 Not Available [facility] ([facility]) [address] [facility], [place], [address], 05/17/2024 09:12:30 05/16/20 24 05/17/2024 CBC, PLATE LET, NO DIFFE RENTI AL hematocrit 44.1 % 34.0-4 6.6 Not Available [facility] ([facility]) [address] [facility], [place], [address], 05/17/2024 09:12:30 05/16/20 24 05/17/2024 CBC, PLATE LET, NO DIFFE RENTI AL MCV 90 fL 79-97 Not Available [facility] ([facility]) [address] [facility], [place], [address], 05/17/2024 09:12:30 05/16/20 24 05/17/2024 CBC, PLATE LET, NO DIFFE RENTI AL MCH 29.2 pg 26.6-3 3.0 Not Available [facility] ([facility]) [address] [facility], [place], [address], 05/17/2024 09:12:30 05/16/2005/17/2024 CBC, PLATE LET, NO DIFFE RENTI AL MCHC 32.7 g/dL 31.5-3 5.7 Not Available [facility] ([facility]) [address] [facility], [place], [address], 05/17/2024 09:12:30 05/16/2005/17/2024 CBC, PLATE LET, NO DIFFE RENTI AL RDW 13.4 % 11.7-1 5.4 Not Available [facility] ([facility]) [address] [place], [address], 05/17/2024 09:12:30 05/16/20 24 05/17/2024 CBC, PLATE LET, NO DIFFE RENTI AL platelets 274 x10e3 /uL 150-45 0 Not Available [facility] ([facility]) [address] [place], [address], 05/17/2024 09:12:30 08/15/20 23 08/15/2023 XR, hip, unila teral No observ ation record ed. [address], [place], [address], 08/17/2023 09:52:36 09/15/20 23 09/15/2023 imagi ng/di agnos tic resul t No observ ation record ed. [facility] [address] [place], [address], 09/18/2023 19:29:58 09/15/20 23 09/15/2023 imagi ng/di agnos tic resul t No observ ation record ed. [facility] [address] [place], [address], 09/18/2023 19:29:23 01/17/20 24 01/16/2024 LDCT, chest , for lung cance r scree estefany No observ ation record ed. [facility] ([facility] [address] [place], [address], 01/18/2024 17:20:21 04/09/20 24 04/09/2024 XR, foot No observ ation record ed. [facility] ([facility] [address] [place], [address], 04/23/2024 12:42:32 Result Notes None recorded. Problems Name Problem SNOMED Code Status Onset Date Resolution Date Notes Provider Name and Address Organization Details Recorded Time Dental abscess 428418196 Active 2017 Not Available [facility] 4 12:31:44 High hemoglob in A1c level 113606760 Active 2017 Not Available [facility] 4 12:31:44 Hyperkal emia 67254333 Active 2017 Not Available [facility] 4 12:31:44 Menopaus al flushing 293192399 Active 2017 Not Available [facility] 4 12:31:44 Intermit tent palpitat ions 359957900 Active 2017 Not Available [facility] 4 12:31:44 Osteopen ia 062585553 Completed 201811/07/2019 Removal Reason: now ostopors is Arash Batista PA-C Attn: Accounting [facility], [place], [address] , [place] - [facility] 0 10:48:55 Osteopor osis 91483454 Active 2019 Not Available [facility] 4 12:31:45 Bilatera l hip joint pain 93660259341 374370 Active 2019 Not Available [facility] 4 12:31:44 Right side sciatica 13873873311 9101 Active 2020 Not Available [facility] 4 12:31:44 Prolapse d lumbar interver tebral disc 865858500 Active 2020 Not Available [facility] 4 12:31:44 Vulvovag initis 97499758 Active 2021 Not Available [facility] 4 12:31:44 HIV screenin g Active 2021 Not Available [facility] 4 12:31:44 Venous varices 883620221 Active 2021 Not Available [facility] 4 12:31:44 Hiatal hernia 53483746 Active Not Available [facility] 4 12:31:45 Sinusiti s 60847761 Active Not Available [facility] 4 12:31:44 Malabsor ption of glucose 700598730 Active Not Available [facility] 4 12:31:44 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 Not Available [facility] 4 12:31:44 Allergic rhinitis 35932465 Active Not Available [facility] 4 12:31:44 Hyperten sive disorder 08506927 Active Not Available [facility] 4 12:31:44 Tobacco user 433160478 Active Not Available [facility] 4 12:31:44 Disorder of vitamin B12 458127325 Active Not Available [facility] 4 12:31:44 Gastroes ophageal reflux disease 345154483 Active Not Available [facility] 4 12:31:44 Hyperlip idemia 35767854 Active Not Available [facility] 4 12:31:44 Muscle atrophy 01834371 Active Not Available [facility] 4 12:31:45 Shipley' s esophagu s 596619344 Active Not Available [facility] 4 12:31:44 Bladder muscle dysfunct ion - overacti ve Active Not Available [facility] 4 12:31:44 Chronic obstruct donovan pulmonar y disease 42414234 Active Not Available [facility] 4 12:31:44 Low back pain 091163243 Active Not Available [facility] 4 12:31:44 Insomnia 897128288 Active Not Available [facility] 4 12:31:44 Actinic keratosi s 181770774 Active Not Available [facility] 4 12:31:44 Acute urinary tract infectio n 154445445 Active Not Available [facility] 4 12:31:44 Hip pain 60791495 Active Not Available [facility] 4 12:31:44 Vitamin D deficien cy 36328686 Active Not Available [facility] 4 12:31:44 Electrol ytes outside referenc e range 571115378 Active Not Available [facility] 4 12:31:44 [facility] [place] [id number] Active 2015 Not Available [facility] 4 12:31:44 Family history of diabetes mellitus [id number] Active 2016 Not Available [facility] 4 12:31:44 Urine: dark/con centrate d [id number] Active 2016 Not Available [facility] 4 12:31:44 Type 2 diabetes mellitus 94787279 Active 2016 Not Available [facility] 4 12:31:44 Neuropat hy 358766544 Active 2016 Not Available [facility] 4 12:31:44 Chronic sciatica 447318126 Active 2016 Not Available [facility] 4 12:31:44 Administ ration of influenz a vaccine Active 2016 Not Available [facility] 4 12:31:45 Notes:Some problems listed i n Document: #[id number] could not be added to this patient's chart. Please review this document and add these problems to the patient's chart manually as needed. Problem Notes None recorded. Procedures Surgical History Date Name Laterality Status Provider Name and Address Organization Details Recorded Time Back Surgery completed Eufemia Sheets [facility] 04/08/2024 11:30:48 Tubal Ligation completed Yessi Donnelly [facility] 01/25/2015 11:53:19 Cholecystectomy completed Yessi Donnelly [facility] 01/25/2015 11:53:19 Imaging Results Imaging Date Name Status LastModified by Organiz ation Details LastModified Time 08/15/2023 XR, hip, unilateral completed [address] [place] [address], [address], 08/17/2023 09:52:36 09/15/2023 imaging/diagnos tic result completed [facility] [address] [place], [address], 09/18/2023 19:29:58 09/15/2023 imaging/diagnos tic result completed [facility] [address] [place], [address], 09/18/2023 19:29:23 01/16/2024 LDCT, chest, for lung cancer screening completed [facility] ([facility]) [address] [place], [address], 01/18/2024 17:20:21 04/09/2024 XR, foot completed [facility] ([facility]) [address] [place], [address], 04/23/2024 12:42:32 Procedure Notes None recorded. Medical Equipment None Reported. Allergies Allergen ID Allergen Name Allergen Category Reaction Reaction Severity Criticality Documentation Date Start Date Code Code System Note Provider Name and Address Organization Details Recorded Time [id number] tramadol medicatio n other severe Not available 11/19/2018 95395 RxNorm Sever e breat tyesha issue s and sweat ing a lot Not Available Not Available Not Available [id number] codeine medicatio n Not available Not available Not available 01/25/2015 2670 RxNorm Pt can not take Shelton codei ne as well, . Not Available Not Available Not Available [id number] azithromy oj medicatio n hives Not available Not available 03/29/2015 47337 RxNorm Not Available Not Available Not Available Medications Name Sig Start Date Stop Date Status Note LastModified by Organization Details LastModified Time losartan 50 mg tablet Take 1 tablet every day by oral route. 08/08 completed Not Available Not Available Not Available cyclobenz aprine 10 mg tablet TAKE ONE TABLET BY MOUTH THREE TIMES DAILY NEEDED FOR MUSCLE SPASMS 04/08 completed Not Available Not Available Not Available amoxicill in 500 mg capsule TAKE ONE CAPSULE BY MOUTH EVERY 8 HOURS FOR SEVEN DAYS 07/16 completed Not Available Not Available Not Available pioglitaz one 15 mg tablet TAKE ONE TABLET BY MOUTH EVERY MORNING FOR DIABETES active Not Available Not Available No t Available atorvasta tin 40 mg tablet Take 1 tablet every day by oral route in the morning for 90 days. 08/08 completed Not Available Not Available Not Available metformin 500 mg tablet TAKE 1/2 TABLET(S ) TWICE A DAY BY ORAL ROUTE BEFORE MEALS FOR DIABETES 09/18 completed Not Available Not Available Not Available clonidine HCl 0.1 mg tablet TAKE ONE TABLET BY MOUTH EVERY NIGHT AT BEDTIME - MAY INCREASE TO TWICE A DAY AFTER ONE WEEK IF TOLERATI NG AND NEED A HIGHER DOSE TO QUIT SMOKING active Not Available Not Available No t Available prednison e 10 mg tablet DAYS 1-2 TAKE 2 TABLETS BY MOUTH TWICE DAILY ; DAYS 3-7 1 TABLET TWICE DAILY ; DAYS 8 -9 HALF TABLET TWICE DAILY ; DAY 10 HALF TABLET ONCE DAILY 12/12 completed Not Available Not Available Not Available paroxetin e 10 mg tablet TAKE 1 TABLET(S ) EVERY DAY BY ORAL ROUTE IN THE EVENING TAKE 2 TO 3 HOURS BEFORE BEDTIME 08/08 completed Not Available Not Available Not Available nicotine 14 mg/24 hr daily transderm al patch Apply 1 patch every day by transder mal route for 30 days. 05/09 completed Not Available Not Available Not Available tizanidin e 2 mg tablet TAKE ONE TABLET BY MOUTH THREE TIMES DAILY 11/06 completed on 4mg Not Available Not Available Not Available trazodone 50 mg tablet TAKE ONE TABLET BY MOUTH EVERY NIGHT AT BEDTIME 04/08 completed Not Available Not Available Not Available azithromy oj 250 mg tablet 07/16 completed Not Available Not Available Not Available tizanidin e 4 mg tablet TAKE ONE TABLET BY MOUTH EVERY 6 HOURS NEEDED 04/08 completed Not Available Not Available Not Available fluconazo le 150 mg tablet TAKE ONE TABLET BY MOUTH THREE TIMES DAILY FOR 7 DAYS 12/12 completed Not Available Not Available Not Available hydrocodo ne 5 mg-acetam inophen 325 mg tablet TAKE ONE TABLET BY MOUTH EVERY 6 HOURS NEEDED FOR PAIN 04/08 completed Not Available Not Available Not Available meloxicam 15 mg tablet Take 1 tablet every day by oral route after meals for 90 days. 04/08 completed Not Available Not Available Not Available phenazopy ridine 200 mg tablet Take 1 tablet 3 times a day by oral route for 2 days. 11/19 completed Not Available Not Available Not Available prednison e 20 mg tablet TAKE ONE TABLET BY MOUTH TWICE DAILY WITH FOOD 07/14 completed Not Available Not Available Not Available alendrona te 70 mg tablet TAKE ONE TABLET BY MOUTH EVERY WEEK TAKE 1 TABLET WEEKLY AN THE SAME DAY EACH WEEK ON AN EMPTY STOMACH WITH 8 OUNCES OF WATER. WAIT 30 MINUTES BEFORE EATING, DRINKING AND DO NOT LIE DOWN FOR 30 MIUTES AFTER TAKING 2024 active Not Available Not Available Not Avai lable lidocaine 4 % topical cream Apply 1 applicat ion 4 times a day by topical route as directed for 30 days. 2023 active Not Available Not Available Not Avai lable acetamino phen 300 mg-codein e 30 mg tablet TAKE 1 TO 2 TABLETS BY MOUTH THREE TIMES DAILY NEEDED FOR PAIN active Not Available Not Available No t Available amlodipin e 5 mg tablet TAKE ONE TABLET BY MOUTH EVERY DAY IN THE MORNING FOR BLOOD PRESSURE active Not Available Not Available No t Available ciproflox acin 500 mg tablet TAKE 1 TABLET(S ) EVERY 12 HOURS BY ORAL ROUTE FOR 10 DAYS. 02/12 completed Not Available Not Available Not Available sulfameth oxazole 800 mg-trimet hoprim 160 mg tablet TAKE ONE TABLET BY MOUTH EVERY TWELVE HOURS AFTER meals FOR 5 DAYS 04/08 completed Not Available Not Available Not Available tramadol 50 mg tablet 11/19 completed Not Available Not Available Not Available ketorolac 30 mg/mL (1 mL) injection solution 1 ml one IM 07/14 completed Not Available Not Available Not Available ondansetr on 8 mg disintegr ating tablet DISSOLVE ONE TABLET ON TOP OF TONGUE UNTIL DISSOLVE D, THEN SWALLOW. DO THIS TWICE DAILY 04/08 completed Not Available Not Available Not Available fenofibra te micronize d 134 mg capsule TAKE 1 CAPSULE( S) EVERY DAY BY MOUTH IN THE MORNING TO LOWER TRIGLYCE RIDES 08/08 completed Not Available Not Available Not Available glimepiri de 1 mg tablet Take 1 tablet twice a day by oral route with meals for 30 days. 08/08 completed Not Available Not Available Not Available prednison e 10 mg tablets in a dose pack Take 1 dose pk by oral route. 12/12 completed Not Available Not Available Not Available methylpre dnisolone acetate 80 mg/mL suspensio n for injection Take 1 mL by injectio n route. 12/12 completed Not Available Not Available Not Available methocarb adrienne 750 mg tablet active Not Available Not Available No t Available OneTouch Ultra Test strips TEST BLOOD SUGAR THREE TIMES DAILY active Not Available Not Available No t Available amlodipin e 10 mg tablet Take 1 tablet every day by oral route in the morning for 30 days. 02/28 completed edema Not Available Not Available Not Available triamcino lone acetonide 40 mg/mL suspensio n for injection Take 40 mg by injectio n route. 12/12 completed Administ ered by Nurse LS, document ed by YVES RMA Not Available Not Available Not Available hydrocodo ne 7.5 mg-acetam inophen 325 mg tablet 08/14 completed Not Available Not Available Not Available cephalexi n 500 mg capsule one capsule po tid 07/14 completed Not Available Not Available Not Available pantopraz ole 40 mg tablet,de layed release TAKE ONE TABLET BY MOUTH EVERY DAY IN THE MORNING FOR STOMACH active Not Available Not Available No t Available nortripty line 10 mg capsule TAKE 3 CAPSULE( S) NEEDED BY MOUTH AT BEDTIME FOR NERVES OR TO AID SLEEP 08/08 completed Not Available Not Available Not Available cyanocoba antolin (vit B-12) 1,000 mcg/mL injection solution Inject 1000 microgra ms every month by subcutan eous route. 12/12 completed Not Available Not Available Not Available neomycin- polymyxin -dexameth 3.5 mg/mL-10, 000 unit/mL-0 .1% eye drops USE ONE DROP IN EACH EYE TWICE DAILY FOR ONE MONTH DIRECTED 04/08 completed Not Available Not Available Not Available ranitidin e 150 mg tablet 11/19 completed Not Available Not Available Not Available lidocaine 5 % topical patch APPLY ONE PATCH TO THE SKIN ONCE EVERY DAY (MAY WEAR UP TO 12 HOURS) 04/08 completed Not Available Not Available Not Available losartan 25 mg tablet TAKE 1 TABLET(S ) EVERY DAY BY MOUTH FOR BLOOD PRESSURE 05/09 completed Not Available Not Available Not Available nicotine 21 mg/24 hr daily transderm al patch one patch q d 2023 active Not Available Not Available Not Avai lable hydrochlo rothiazid e 12.5 mg capsule Take 1 capsule every day by oral route in the morning for 30 days. 11/19 completed Not Available Not Available Not Available gabapenti n 300 mg capsule TAKE ONE CAPSULE BY MOUTH THREE TIMES DAILY FOR PAIN 04/08 completed Not Available Not Available Not Available omeprazol e 20 mg capsule,d elayed release TAKE 1 CAPSULE( S) TWICE A DAY BY ORAL ROUTE BEFORE MEALS FOR STOMACH 12/12 completed Not Available Not Available Not Available monteluka st 10 mg tablet Take 1 tablet(s ) every day by oral route in the morning for 30 days. 11/19 completed Not Available Not Available Not Available alcohol swabs USE TO CLEAN THE INJECTIO N SITE OF INSULIN AND WHEN CHECKING BLOOD SUGAR active Not Available Not Available No t Available pravastat in 20 mg tablet TAKE 1 TABLET BY MOUTH ONCE DAILY BY MOUTH TO LOWER CHOLESTE ROL 07/14 completed Not Available Not Available Not Available gabapenti n 100 mg capsule TAKE TWO CAPSULES BY MOUTH THREE TIMES DAILY, MORNING, MIDDAY & IN THE EVENING FOR PAIN MANAGEME NT active Not Available Not Available No t Available ergocalci ferol (vitamin D2) 1,250 mcg (50,000 unit) capsule TAKE ONE TABLET BY MOUTH EVERY WEEK FOR VITAMIN DEFICIAN CY active Not Available Not Available No t Available ibuprofen 600 mg tablet TAKE ONE TABLET BY MOUTH EVERY 6 HOURS NEEDED 04/08 completed Not Available Not Available Not Available methylpre dnisolone 4 mg tablets in a dose pack Use as directed on package active Not Available Not Available No t Available albuterol sulfate HFA 90 mcg/actua tion aerosol inhaler two puffs qid prn 2023 active Not Available Not Available Not Avai lable docusate sodium 250 mg capsule TAKE ONE CAPSULE BY MOUTH TWICE DAILY 04/08 completed Not Available Not Available Not Available losartan 100 mg tablet TAKE 1 TABLET(S ) EVERY DAY BY ORAL ROUTE FOR 30 DAYS FOR BLOOD PRESSURE 12/16 completed Not Available Not Available Not Available fluticaso ne propionat e 50 mcg/actua tion nasal spray,aqu[place] pension Inhale 1 spray twice a day by intranas al route for 30 days. 11/19 completed Not Available Not Available Not Available metformin ER 500 mg tablet,ex tended release 24 hr one tab po BID 2024 active Not Available Not Available Not Avai lable loratadin e 10 mg tablet Take 1 tablet every day by oral route in the morning for 30 days. 04/08 completed Not Available Not Available Not Available naproxen 500 mg tablet Take 1 tablet twice a day by oral route with meals for 30 days. 08/08 completed Not Available Not Available Not Available diazepam 5 mg tablet TAKE ONE TABLET BY MOUTH TWICE DAILY 04/08 completed Not Available Not Available Not Available amoxicill in 875 mg-potass ium clavulana te 125 mg tablet TAKE ONE TABLET BY MOUTH EVERY TWELVE HOURS WITH large GLASS of water 07/14 completed Not Available Not Available Not Available nicotine 7 mg/24 hr daily transderm al patch Apply 1 patch every day by transder mal route for 30 days. 11/19 completed Not Available Not Available Not Available diabetic supplies, [place] . active Fax: Di one: [phone] Not Available Not Available Not Available Oyster Shell Calcium-V itamin D3 500 mg-5 mcg (200 unit) tablet TAKE TWO TABLETS BY MOUTH EVERY MORNING FOR CALCIUM active Not Available Not Available No t Available back brace 11/19 completed Not Available Not Available Not Available azithromy oj 500 mg tablet Take 1 tablet every day by oral route in the morning for 5 days. 01/30 completed Not Available Not Available Not Available ezetimibe 10 mg tablet TAKE 1 TABLET(S ) EVERY DAY BY MOUTH TO LOWER CHOLESTE ROL 08/08 completed Not Available Not Available Not Available cyclobenz aprine 5 mg tablet 11/19 completed Not Available Not Available Not Available pregabali n 100 mg capsule TAKE ONE CAPSULE BY MOUTH THREE TIMES DAILY FOR PAIN MANAGEME NT 04/08 completed Not Available Not Available Not Available omeprazol e 11/19 completed Not Available Not Available Not Available varenicli ne tartrate 0.5 mg (11)-1 mg (42) tablets in a dose pack USE DIRECTED PER package instruct ions 04/08 completed Not Available Not Available Not Available Januvia 25 mg tablet TAKE ONE TABLET BY MOUTH EVERY MORNING 05/09 completed Not Available Not Available Not Available Januvia 100 mg tablet TAKE ONE TABLET BY MOUTH EVERY DAY FOR DIABETES 07/14 completed Not Available Not Available Not Available calcium 600 mg (as carbonate )-vitamin D3 10 mcg (400 unit) tablet Take 1 tablet twice a day by oral route with meals for 30 days. 08/08 completed Not Available Not Available Not Available Voltaren 1 % topical gel APPLY 2 GRAM TO THE AFFECTED AREA(S) BY TOPICAL ROUTE 4 TIMES PER DAY 11/19 completed Not Available Not Available Not Available Tradjenta 5 mg tablet TAKE ONE TABLET BY MOUTH EVERY DAY 04/08 completed Not Available Not Available Not Available Chantix Continuin g Month Box 1 mg tablet Take 1 tablet twice a day by oral route as directed for 30 days. 04/08 completed Not Available Not Available Not Available TRUEplus Lancets 33 gauge TEST BLOOD SUGAR THREE TIMES DAILY active Not Available Not Available No t Available Nesina 25 mg tablet one tab po q d 06/04 completed edy tafoya d/c'd this medicati on -per Darek @ pharmacy 05/30/24-m d,rma/// /provide r changed med to Hillary Not Available Not Available Not Available Invokana 300 mg tablet Take by oral route for 30 days. 06/05 completed Not Available Not Available Not Available Farxiga 10 mg tablet TAKE 1 TABLET BY MOUTH EVERY DAY FOR BLOOD SUGAR 08/08 completed Not Available Not Available Not Available Pennsaid 20 mg/gram/a ctuation (2 %) topical soln in metered-d ose pump APPLY 2 PUMPS (40 MG) TO THE AFFECTED lumbar and hips BY TOPICAL ROUTE 2 TIMES PER DAY 04/08 completed Not Available Not Available Not Available Jardiance 25 mg tablet TAKE ONE TABLET BY MOUTH EVERY DAY FOR DIABETES 08/08 completed Not Available Not Available Not Available Repatha SureClick 140 mg/mL subcutane ous pen injector INJECT 1ml UNDER THE SKIN EVERY TWO WEEKS 2023 active Not Available Not Available Not Avai lable Clenpiq 10 mg-3.5 gram-12 gram/160 mL oral solution AT 6PM THE EVENING BEFORE YOUR PROCEDUR E, START DRINKING YOUR FIRST BOTTLE OF CLENPIQ (DO NOT DILUTE OR MIX) FOLLOWED BY FIVE CUPS OF WATER, FINISH BY 11PM. AT 330AM ON THE DAY OF PROCEDUR E, START DRINKING 2ND BOTTLE OF CLENPIQ FOLLOWED BY FOUR CUPS OF WATER. FINISH BY 630AM. 12/12 completed Not Available Not Available Not Available OneTouch Ultra2 Meter USE TO test blood sugar active Not Available Not Available No t Available Vitals Date Recorded Body height Provider Name an d Address Organization Details Last Updated DateTime 07/16/2023 162.56 cm Hodan Meng [facility] 07/16/2023 14:37:35 Date Recorded Body mass index (BMI) Body weight Provider Name and Address Organization Details Last Updated DateTime 07/16/2023 20.9 kg/m2 21821.27 g Hodan Meng [facility] 14:37:47 Date Recorded Heart rate Provider Name an d Address Organization Details Last Updated DateTime 07/16/2023 106 /min Hodan Meng [facility] 07/16/2023 14:39:42 Date Recorded Oxygen saturation Oxygen saturation in Arterial blood by Pulse oximetry Provider Name and Address Organization Details Last Updated DateTime 07/16/2023 100 % 100 % Hodan Meng [facility] 07/16 14:39:47 Date Recorded Body height Provider Name an d Address Organization Details Last Updated DateTime 12/17/2023 162.56 cm Hodan Meng [facility] 12/17/2023 12:02:03 Date Recorded Body mass index (BMI) Body weight Provider Name and Address Organization Details Last Updated DateTime 12/17/2023 21.5 kg/m2 76573.05 g Hodan Meng [facility] 12:02:16 Date Recorded Heart rate Provider Name an d Address Organization Details Last Updated DateTime 12/17/2023 111 /min Hodan Meng [facility] 12/17/2023 12:03:30 Date Recorded Oxygen saturation Oxygen saturation in Arterial blood by Pulse oximetry Provider Name and Address Organization Details Last Updated DateTime 12/17/2023 96 % 96 % Hodan Meng [facility] 12/17 12:03:36 Date Recorded Body height Provider Name an d Address Organization Details Last Updated DateTime 04/08/2024 162.56 cm Eufemia Sheets [facility] 04/08/2024 11:20:20 Date Recorded Respiratory rate Provider Name a nd Address Organization Details Last Updated DateTime 04/08/2024 17 /min Eufemia Sheets [facility] 04/08/2024 11:20:45 Date Recorded Body mass index (BMI) Body weight Provider Name and Address Organization Details Last Updated DateTime 04/08/2024 20.6 kg/m2 64135.08 celso Sheets [facility] 11:21:37 Date Recorded Oxygen saturation Oxygen saturation in Arterial blood by Pulse oximetry Provider Name and Address Organization Details Last Updated DateTime 04/08/2024 98 % 98 % Eufemia Sheets [facility] 04/08/2024 11:33:26 Date Recorded Heart rate Provider Name an d Address Organization Details Last Updated DateTime 04/08/2024 83 /min Eufemia Sheets [facility] 04/08/2024 11:33:31 Date Recorded Body temperature Provider Name a nd Address Organization Details Last Updated DateTime 04/08/2024 97.7 [degF] Eufemia Sheets [facility] 11:33:38 Date Recorded Body height Provider Name an d Address Organization Details Last Updated DateTime 07/14/2024 162.56 cm Eufemia Sheets [facility] 07/14/2024 11:28:43 Date Recorded Body mass index (BMI) Body weight Provider Name and Address Organization Details Last Updated DateTime 07/14/2024 21.3 kg/m2 43090.45 celso Sheets [facility] 11:36:40 Date Recorded Oxygen saturation Oxygen saturation in Arterial blood by Pulse oximetry Provider Name and Address Organization Details Last Updated DateTime 07/14/2024 100 % 100 % Eufemia Sheets [facility] 07/14/2024 11:40:39 Date Recorded Heart rate Provider Name an d Address Organization Details Last Updated DateTime 07/14/2024 63 /min Eufemiaroland Sheets ELIANA [facility] 07/14/2024 11:40:43 Date Recorded Systolic blood pressure Diastolic blood pressure Provider Name and Address Organization Details Last Updated DateTime 07/16/2023 108 mm[Hg] 67 mm[Hg] Hodan Meng [facility] 06/29 14:39:35 Date Recorded Systolic blood pressure Diastolic blood pressure Provider Name and Address Organization Details Last Updated DateTime 12/17/2023 110 mm[Hg] 66 mm[Hg] Hodan Meng MA [facility] 11/29 12:03:51 Date Recorded Systolic blood pressure Diastolic blood pressure Provider Name and Address Organization Details Last Updated DateTime 04/08/2024 110 mm[Hg] 68 mm[Hg] Eufemia Sheets [facility] 04/08/2024 11:33:19 Date Recorded Systolic blood pressure Diastolic blood pressure Provider Name and Address Organization Details Last Updated DateTime 07/14/2024 122 mm[Hg] 78 mm[Hg] Eufemia Sheets [facility] 07/14/2024 11:40:11 Social History Question Answer Notes LastModified by Organizat ion Details LastModified Time Tobacco Smoking Status Current Every Day Smoker 1 pack a day [facility]/09/2022 17:02:02 Do You Have An Advance Directive? No Information not available 01/25/2015 What Is Your Level Of Alcohol Consumption? Occasional Information not available 01/25/2015 Are You Blind Or Do You Have Difficulty Seeing? No Information not available 01/25/2015 What Is Your Level Of Caffeine Consumption? Moderate Information not available 01/25/2015 How Much Tobacco Do You Chew? None Information not available 01/25/2015 Are You Currently Employed? Yes Information not available 12/16/2020 Are You Deaf Or Do You Have Serious Difficulty Hearing? No Information not available 01/25/2015 What Type Of Diet Are You Following? REGULAR Information not available 01/25/2015 Which Illicit Or Recreational Drugs Have You Used? N/a Information not available 01/25/2015 Education 11 Information no t available 01/25/2015 What Is The Highest Grade Or Level Of School You Have Completed Or The Highest Degree You Have Received? 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 No Information not available 01/25/2015 Hard Of Hearing Or Deaf In One Or Both Ears? No Information not available 01/25/2015 Legally Blind In One Or Both Eyes? No Information not available 01/25/2015 Marital Status Informatio n not available 01/25/2015 What Was The Date Of Your Most Recent Tobacco Screening? 07/14/2024 Information not available 07/14/2024 How Many Children Do You Have? 2 Information not available 12/16/2020 Performs Monthly Self-breast Exam? Yes Information not available 01/25/2015 Do You Use Protection During Sex? No Information not available 12/16/2020 What Is Your Relationship Status? Other Information not available 12/16/2020 Do You Use Your Seat Belt Or Car Seat Routinely? Yes Information not available 12/16/2020 Seat Belts Used Routinely Yes Information not available 01/25/2015 Are You Sexually Active? Yes Information not available 12/16/2020 Smoke Alarm In Home Yes Information not available 01/25/2015 Do You Have Smoke And Carbon Monoxide Detectors In Your Home? Yes Information not available 12/16/2020 At What Age Did You Start Smoking Tobacco? 19 Information not available 01/25/2015 Are You Passively Exposed To Smoke? Yes Information not available 12/16/2020 How Much Tobacco Do You Smoke? 1 PPD Information not available 01/25/2015 General Stress Level Medium Information not available 01/25/2015 Do You Feel Stressed (tense, Restless, Nervous, Or Anxious, Or Unable To Sleep At Night)? [id number] Information not available 12/16/2020 Do You Use Sunscreen Routinely? Yes Information not available 01/25/2015 On What Date Was Tobacco Cessation Counseling Provided? 07/14/2024 Information not available 07/14/2024 Sex: Female Functional Status Question Answer Note LastModified by Organization D etails LastModified Time Do you have difficulty walking or climbing stairs? No Information not available 01/25/2015 Do you have difficulty doing errands alone? No Information not available 01/25/2015 Are you able to care for yourself? Yes Information n ot available 12/16/2020 Do you have difficulty dressing or bathing? No Information not available 01/25/2015 What is your exercise level? None Information not available 01/25/2015 Mental Status Question Answer Note LastModified by Organization D etails LastModified Time Do you have difficulty concentrating, remembering or making decisions? No Information no t available 01/25/2015 Family History Relationship Description Onset Age of this Age Resolved Age Notes LastModified by Organization Details LastModified Time Mother Diabetes mellitus Not available 2014 11:56:07 Maternal Aunt Diabetes mellitus Not available 2014 11:56:07 Maternal Uncle Diabetes mellitus Not available 2014 11:56:07 Brother Diabetes mellitus Not available 2014 11:56:07 Brother Diabetes mellitus Not available 2014 11:56:07 Medical History Condition Response Acid Reflux (GERD) Y High Blood Pressure Y GI Problems Y High Cholesterol Y Gynecological HistoryNo gynecological history recorded. Obstetrics History GPAL:G 0 P 0 0 0 0 Immunizations Vaccine Type Date Status Note Provider Nam e and Address Organization Details Recorded Time Influenza, split virus, quadrivalent, preservative 6 completed Not Available [facility] 11/15/2019 02:46:39 Influenza, split virus, quadrivalent, preservative 5 completed JUAN Cedeno [place], [place] [facility] 05/30/2024 10:50:22 COVID-19, mRNA, LNP-S, PF, 30 mcg/0.3 mL dose 1 completed [place]UAN [place] [facility] 05/30/2024 10:50:22 COVID-19, mRNA, LNP-S, PF, 30 mcg/0.3 mL dose 1 completed [place]UAN [place] [facility] 05/30/2024 10:50:22 COVID-19, mRNA, LNP-S, PF, 30 mcg/0.3 mL dose 1 completed [place]UAN [place] [facility] 05/30/2024 10:50:22 RSV, recombinant, protein subunit RSVpreF, adjuvant reconstituted, 0.5 mL, PF 3 completed Jocelin Hamlin [place] [facility] 05/30/2024 10:50:22 COVID-19, mRNA, LNP-S, PF, malcom-sucrose, 30 mcg/0.3 mL 4 completed Jocelin Hamlin [place] [facility] 05/30/2024 10:50:22 Influenza, split virus, quadrivalent, preservative 7 completed Not Available [facility] 11/15/2019 02:34:25 Influenza, split virus, quadrivalent, preservative 8 completed Not Available [facility] 11/15/2019 02:49:14 Influenza, split virus, quadrivalent, preservative 9 completed Not Available [facility] 11/15/2019 02:38:13 Influenza, split virus, quadrivalent, preservative 0 completed Nisa Garcia [place], [place] [facility] 08/13/2020 12:09:07 Influenza, split virus, quadrivalent, preservative 1 completed Allie Mckeon [place] [facility] 09/05/2021 07:56:16 Influenza, split virus, quadrivalent, preservative 2 completed Arash Batista PA-C Attn: Accounting[address] [place], [address], [place] [facility] 08/09/2022 16:44:55 pneumococcal polysaccharide PPV23 3 completed Wil Mclaughlin MD Attn: Accounting[address] [place], [address], [place] [facility] 12/12/2022 18:27:18 Influenza, high-dose, quadrivalent, PF 3 completed Hodan Meng [place] [facility] 08/27/2023 16:40:22 Influenza, high-dose, trivalent, PF 4 completed Haily Baron MD Attn: Accounting[address] [facility], [place], [address], [place] [facility] 07/14/2024 14:42:43 Pneumococcal conjugate PCV20, polysaccharide [id number] conjugate, adjuvant, PF 4 completed Haily Baron MD Attn: Accounting[address] [facility], [place], [address], [place] [facility] 07/14/2024 14:42:43 Past Encounters Encounter ID Performer Location Encounter Start Date Encounter Closed Date Diagnosis/Indication Diagnosis SNOMED-CT Code Diagnosis ICD10 Code Diagnosis Note [id number] Sharri Ezra Collazo (Adult Med) [address] [place] [address] [id number] 0 01/25/2015 10:55:43 01/25/2015 12:29:09 Sinusitis 41142072 Tobacco user 925738142 Peripheral nerve disease 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 Muscle atrophy 39601802 Malabsorpt ion of glucose 851579858 Hypertensive disorder 13062750 Hyperlipidemia 44435345 Hiatal hernia 69661347 Gastroesop hageal reflux disease 445099265 Disorder o f vitamin B12 886178723 Shipley's esophagus 266872270 Allergic rhinitis 78332422 Chronic ob structive pulmonary disease 02485556 [id number] ELIANA Siddiqui (Adult Med) [address] [place] [address] [id number] 0 03/29/2015 10:48:44 03/29/2015 16:00:11 Sinusitis 47538451 Chronic ob structive pulmonary disease 21653147 Allergic rhinitis 76793581 Disorder o f vitamin B12 684492155 Gastroesop hageal reflux disease 467250544 Hyperlipidemia 97573719 Peripheral nerve disease 343505887 Tobacco user 816160600 Low back pain 902834769 [id number] Zay (Adult Med) [address] [place] [address] [id number] 0 06/01/2015 11:34:56 06/01/2015 12:40:40 Allergic rhinitis 49505330 Sinusitis 38021086 Hypertensive disorder 65627027 Hyperlipidemia 71535654 Gastroesop hageal reflux disease 348788897 Disorder o f vitamin B12 967592227 Low back pain 812305742 [id number] Jackie Collazo (Adult Med) [address] [place] [address] [id number] 0 08/03/2015 09:53:34 08/05/2015 12:05:34 Allergic rhinitis 98183486 J30.9 Bladder mu scle dysfunction - overactive 959665950 N32.81 Chronic ob structive pulmonary disease 34852532 J44.9 Disorder o f vitamin B12 764470715 D51.1 Gastroesop hageal reflux disease 906147281 K21.9 Hyperlipidemia 52290993 E78.5 Hypertensive disorder 38 194805 I10 Low back pain 317152205 M54.5 Peripheral nerve disease 446882105 G64 Tobacco user 393264593 Z 72.0 Active or passive immunization 527015255 Z23 Insomnia 666389740 G47.0 0 Actinic keratosis 964709 007 L57.0 above right lip 1 cm . present for 1 year [id number] ABNER Wood (Adult Med) [address] [place] [address] [id number] 0 11/02/2015 10:47:27 11/02/2015 18:05:43 Sinusitis 67570427 J32.9 Allergic rhinitis 243015 04 J30.9 Chronic ob structive pulmonary disease 26184109 J44.9 Disorder o f vitamin B12 677221617 D51.1 Gastroesop hageal reflux disease 083755701 K21.9 Hiatal hernia 27841010 K 44.9 Hyperlipidemia 83030924 E78.5 Insomnia 724299002 G47.0 0 Low back pain 027283754 M54.5 [id number] ABNER Wood (Adult Med) [address] [place] [address] [id number] 0 02/01/2016 10:48:59 02/01/2016 14:24:23 Hip pain 50368429 M25.559 Shipley's esophagus 3029 06814 K22.70 minimal from upper endoscopy 4 months ago.... they want to see her in 3 years Hyperlipidemia 18561634 E78.5 Disorder o f vitamin B12 275862658 D51.1 [id number] ABNER Wood (Adult Med) [address] [place] [address] [id number] 0 05/09/2016 13:30:32 05/09/2016 14:53:59 Sinusitis 26076394 J32.9 Hip pain 19147542 M25.55 9 Vitamin D deficiency 347 18333 E55.9 Allergic rhinitis 730337 04 J30.9 Shipley's esophagus 3029 46058 K22.70 minimal from upper endoscopy 4 months ago.... they want to see her in 3 years Bladder mu scle dysfunction - overactive 357355195 N32.81 Chronic ob structive pulmonary disease 27808753 J44.9 Disorder o f vitamin B12 740346000 D51.1 Gastroesop hageal reflux disease 802577456 K21.9 Hyperlipidemia 32874743 E78.5 Hypertensive disorder 38 000421 I10 Insomnia 421037161 G47.0 0 Low back pain 259339391 M54.5 Peripheral nerve disease 843517994 G64 Tobacco user 723433302 Z 72.0 [id number] ABNER Wood (Adult Med) [address] [place] [address] [id number] 08/08/2016 10:41:29 08/08/2016 11:57:05 Shipley's esophagus 796086755 K22.70 minimal from upper endoscopy 4 months ago.... they want to see her in 3 years Bladder mu scle dysfunction - overactive 357729256 N32.81 Chronic ob structive pulmonary disease 88720004 J44.9 Disorder o f vitamin B12 837598593 D51.1 Gastroesop hageal reflux disease 228954592 K21.9 Hiatal hernia 34163718 K 44.9 Hyperlipidemia 26657633 E78.5 Hypertensive disorder 38 676607 I10 Low back pain 816955390 M54.5 Administra tion of influenza vaccine 83779496 Z23 Vitamin D deficiency 347 67262 E55.9 [id number] ABNER Wood (Adult Med) [address] [place] [address] [id number] 0 11/07/2016 10:40:49 11/07/2016 12:13:18 Family history of diabetes mellitus 293693904 Z83.3 Hyperlipidemia 58834128 E78.5 Urine: dark/concentrated 689414251 R82.99 Disorder o f vitamin B12 537363042 D51.1 [id number] ABNER Wood (Adult Med) [address] [place] [address] [id number] 0 01/05/2017 11:12:59 01/05/2017 17:51:13 Type 2 diabetes mellitus 03962358 E11.9 Hyperlipidemia 73179335 E78.5 Disorder o f vitamin B12 983599423 D51.1 Low back pain 150820072 M54.5 [id number] ABNER Wood (Adult Med) [address] [place] [address] [id number] [id number] 02/28/2017 11:40:19 03/01/2017 09:59:31 Sinusitis 42314774 J32.9 Gastroesop hageal reflux disease 114342476 K21.9 Insomnia 691702002 G47.0 0 Essential hypertension 46176873 I10 Tobacco user 135148274 Z 72.0 Type 2 tamiko betes mellitus 57692654 E11.9 Hypertensive disorder 38 124357 I10 Hyperlipidemia 49304082 E78.5 Neuropathy 213501647 G62 .9 [id number] ABNER Wood (Adult Med) [address] [place] [address] [id number] 0 06/04/2017 11:24:47 06/04/2017 12:20:37 Sinusitis 81008490 J32.9 Neuropathy 078709828 G62 .9 Low back pain 205494647 M54.5 Disorder o f vitamin B12 858004355 D51.1 Hyperlipidemia 43807862 E78.5 Hip pain 23933723 M25.55 9 [id number] ABNER Wood (Adult Med) [address] [place] [address] [id number] 0 08/20/2017 16:03:46 08/22/2017 11:20:47 Essential hypertension 74099911 I10 Chronic sciatica 5628034 01 M54.31 Gastroesop hageal reflux disease 304111786 K21.9 Hip pain 60851549 M25.55 9 Administra tion of influenza vaccine 80449845 Z23 Neuropathy 415655267 G62 .9 Low back pain 440306737 M54.5 Shipley's esophagus 3029 91241 K22.70 minimal from upper endoscopy 4 months ago.... they want to see her in 3 years Vitamin D deficiency 347 00715 E55.9 Hyperlipidemia 84229224 E78.5 Allergic rhinitis 805744 04 J30.1 [id number] ABNER Wood (Adult Med) [address] [place] [address] [id number] 0 11/29/2017 11:43:39 11/29/2017 13:30:58 Disorder of vitamin B12 414086566 D51.1 Gastroesop hageal reflux disease 664805883 K21.9 Low back pain 070326638 M54.5 Dental abscess 261368073 K04.7 Hip pain 57715912 M25.55 9 Type 2 tamiko betes mellitus 19867749 E11.9 Neuropathy 730447989 G62 .9 Essential hypertension 83474544 I10 Tobacco user 927815533 Z 72.0 Chronic ob structive pulmonary disease 32961544 J44.9 Hyperlipidemia 44331977 E78.5 [id number] ABNER Wood (Adult Med) [address] [place] [address] [id number] 0 01/30/2018 11:49:59 01/30/2018 12:56:34 Menopausal flushing 428488644 N95.1 Chronic sciatica 1939090 01 M54.31 Hyperlipidemia 87050718 E78.5 Disorder o f vitamin B12 667835237 D51.1 Intermitte nt palpitations 304047903 R00.2 [id number] ELIANA Gamino (Adult Med) [address] [place] [address] [id number] 03/01/2018 11:40:36 03/04/2018 11:03:32 Disorder of vitamin B12 807518163 D51.1 [id number] ABNER Wood (Adult Med) [address] [place] [address] [id number] 0 05/07/2018 10:13:05 05/08/2018 08:49:50 Type 2 diabetes mellitus 88243831 E11.9 Hyperkalemia 68233828 E8 7.5 Essential hypertension 50621874 I10 Hyperlipidemia 30073730 E78.5 Disorder o f vitamin B12 738344317 D51.1 Intermitte nt palpitations 637156889 R00.2 Low back pain 310967561 M54.5 Tobacco user 895669734 Z 72.0 Shipley's esophagus 3029 42265 K22.70 minimal from upper endoscopy 4 months ago.... they want to see her in 3 years Vitamin D deficiency 347 91907 E55.9 [id number] ABNER Wood (Adult Med) [address] [place] [address] [id number] 0 08/14/2018 10:54:04 08/14/2018 12:37:14 Neuropathy 819442205 G62.9 Disorder o f vitamin B12 319705211 D51.1 Sinusitis 88154129 J32.9 Vitamin D deficiency 347 46031 E55.9 Hyperlipidemia 95455405 E78.5 Allergic rhinitis 095337 04 J30.1 Gastroesop hageal reflux disease 901033117 K21.9 Insomnia 640458354 G47.0 0 Tobacco user 164299421 Z 72.0 Type 2 tamiko betes mellitus 46717901 E11.9 [id number] ELIANA Gamino (Adult Med) [address] [place] [address] [id number] 0 08/29/2018 10:38:51 08/29/2018 16:16:23 Administration of influenza vaccine 45378425 Z23 [id number] ELIANA Mcintyre (Adult Med) [address] [place] [address] [id number] 0 09/17/2018 10:34:48 09/17/2018 13:05:35 Disorder of vitamin B12 772699493 D51.1 [id number] ABNER Wood (Adult Med) [address] [place] [address] [id number] 0 11/19/2018 09:59:56 11/20/2018 14:58:22 Low back pain 412291342 M54.5 Sinusitis 49279100 J32.9 Allergic rhinitis 321601 04 J30.1 Disorder o f vitamin B12 096923925 D51.1 Hyperlipidemia 03881486 E78.5 Gastroesop hageal reflux disease 294227072 K21.9 Family his tory of diabetes mellitus 751742124 Z83.3 Type 2 tamiko betes mellitus 25157040 E11.9 Neuropathy 931764308 G62 .9 Essential hypertension 41924843 I10 Chronic ob structive pulmonary disease 19097168 J44.9 Insomnia 114689914 G47.0 0 Vitamin D deficiency 347 07153 E55.9 [id number] ELIANA Mcintyre (Adult Med) [address] [place] [address] [id number] 0 12/20/2018 10:30:13 12/23/2018 08:57:48 Disorder of vitamin B12 444260374 D51.1 [id number] ABNER Wood (Adult Med) [address] [place] [address] [id number] 0 02/12/2019 09:44:04 02/13/2019 08:56:43 Vitamin D deficiency 81964204 E55.9 Disorder o f vitamin B12 689859847 D51.1 Low back pain 874282657 M54.5 Neuropathy 076179964 G62 .9 Type 2 tamiko betes mellitus 38676829 E11.9 Essential hypertension 77649441 I10 Tobacco user 272709162 Z 72.0 Chronic ob structive pulmonary disease 70929502 J44.9 Insomnia 408893671 G47.0 0 Gastroesop hageal reflux disease 309451656 K21.9 Shipley's esophagus 3029 63626 K22.70 minimal from upper endoscopy 4 months ago.... they want to see her in 3 years Hyperlipidemia 68940831 E78.5 Allergic rhinitis 526828 04 J30.1 [id number] ABNER Wood (Adult Med) [address] [place] [address] [id number] 0 05/07/2019 10:45:32 05/07/2019 12:26:51 Disorder of vitamin B12 554153675 D51.1 Chronic sciatica 9382279 01 M54.31 Hip pain 53200972 M25.55 9 Low back pain 104120556 M54.5 Tobacco user 371126464 Z 72.0 Neuropathy 123635524 G62 .9 Type 2 tamiko betes mellitus 89318422 E11.9 Essential hypertension 71120899 I10 Chronic ob structive pulmonary disease 72049872 J44.9 Insomnia 488834032 G47.0 0 Gastroesop hageal reflux disease 637281857 K21.9 Shipley's esophagus 3029 27608 K22.70 minimal from upper endoscopy 4 months ago.... they want to see her in 3 years Vitamin D deficiency 347 14268 E55.9 Hyperlipidemia 95119635 E78.5 Allergic rhinitis 190382 04 J30.1 [id number] RICHARD Lazaro (Adult Med) [address] [place] [address] [id number] 0 06/06/2019 10:43:37 06/09/2019 08:49:49 Disorder of vitamin B12 372497518 D51.1 [id number] ABNER Wood (Adult Med) [address] [place] [address] [id number] 0 08/07/2019 10:48:36 08/07/2019 12:42:28 Administration of influenza vaccine 47312724 Z23 Hyperlipidemia 11590525 E78.5 Disorder o f vitamin B12 540233007 D51.1 Low back pain 252519435 M54.5 Neuropathy 740177120 G62 .9 Type 2 tamiko betes mellitus 82434096 E11.9 Essential hypertension 06412761 I10 Tobacco user 658296185 Z 72.0 Chronic ob structive pulmonary disease 11324877 J44.9 Gastroesop hageal reflux disease 719083818 K21.9 [id number] ABNER Wood (Adult Med) [address] [place] [address] [id number] 11/07/2019 10:14:15 11/07/2019 11:39:46 Disorder of vitamin B12 725926697 D51.1 Low back pain 497264005 M54.5 Osteoporosis 51525837 M8 1.0 Hyperlipidemia 30946568 E78.5 Type 2 tamiko betes mellitus 39625364 E11.9 Vitamin D deficiency 347 07704 E55.9 Tobacco user 356530581 Z 72.0 Neuropathy 965393032 G62 .9 Insomnia 020262365 G47.0 0 Bilateral hip joint pain 7987155814 8850930 M25.021 [id number] ELIANA Peraza (Adult Med) [address] [place] [address] [id number] 0 12/08/2019 10:48:30 12/09/2019 09:26:04 Disorder of vitamin B12 401281265 D51.1 [id number] ABNER Wood (Adult Med) [address] [place] [address] [id number] 0 02/18/2020 11:45:59 02/18/2020 12:28:26 Low back pain 633268921 M54.5 Vitamin D deficiency 347 20468 E55.9 Bilateral hip joint pain 5397396069 0887031 M25.551 Type 2 tamiko betes mellitus 00651405 E11.9 Neuropathy 038540730 G62 .9 Allergic rhinitis 954931 04 J30.1 Shipley's esophagus 3029 36404 K22.70 minimal from upper endoscopy 4 months ago.... they want to see her in 3 years Chronic ob structive pulmonary disease 78016920 J44.9 Chronic sciatica 0230983 01 M54.31 Disorder o f vitamin B12 288004610 D51.1 Essential hypertension 00831930 I10 Gastroesop hageal reflux disease 708620405 K21.9 Hyperlipidemia 04222528 E78.5 Hypertensive disorder 38 585608 I10 Insomnia 505550047 G47.0 0 Osteoporosis 10589396 M8 1.0 Tobacco user 013593734 Z 72.0 [id number] ABNER Wood (Adult Med) [address] [place] [address] [id number] 04/20/2020 07:58:55 04/20/2020 12:48:12 Type 2 diabetes mellitus 30310442 E11.9 Neuropathy 967001794 G62 .9 Insomnia 988432758 G47.0 0 Hypertensive disorder 38 705001 I10 Hyperlipidemia 60577753 E78.5 High hemog lobin A1c level 756585047 R73.09 Allergic rhinitis 944489 04 J30.1 Shipley's esophagus 3029 92854 K22.70 minimal from upper endoscopy 4 months ago.... they want to see her in 3 years Chronic ob structive pulmonary disease 66611195 J44.9 Chronic sciatica 5455232 01 M54.31 Disorder o f vitamin B12 059498068 D51.1 Essential hypertension 17692769 I10 Gastroesop hageal reflux disease 338583528 K21.9 Hiatal hernia 53873666 K 44.9 Low back pain 034684170 M54.5 Osteoporosis 21229577 M8 1.0 Vitamin D deficiency 347 28679 E55.9 [id number] ABNER Wood (Adult Med) [address] [place] [address] [id number] 0 08/04/2020 08:24:03 08/04/2020 12:43:26 Low back pain 196895487 M54.5 Allergic rhinitis 873095 04 J30.1 Shipley's esophagus 3029 87956 K22.70 minimal from upper endoscopy 4 months ago.... they want to see her in 3 years Chronic ob structive pulmonary disease 66238380 J44.9 Chronic sciatica 0752808 01 M54.31 Disorder o f vitamin B12 323043940 D51.1 Essential hypertension 66288708 I10 Gastroesop hageal reflux disease 258085805 K21.9 High hemog lobin A1c level 305349899 R73.09 Hyperlipidemia 98687623 E78.5 Hypertensive disorder 38 477495 I10 Insomnia 605900975 G47.0 0 Vitamin D deficiency 347 94985 E55.9 [id number] ELIANA Peraza (Adult Med) [address] [place] [address] [id number] 0 08/13/2020 11:11:51 08/13/2020 12:14:45 Administration of influenza vaccine 97796316 Z23 Disorder o f vitamin B12 771977400 D51.1 [id number] ABNER Wood (Adult Med) [address] [place] [address] [id number] 0 12/16/2020 08:05:18 12/16/2020 12:47:35 Allergic rhinitis 24312887 J30.1 Shipley's esophagus 3029 02424 K22.70 minimal from upper endoscopy 4 months ago.... they want to see her in 3 years Chronic ob structive pulmonary disease 34468847 J44.9 Essential hypertension 31256909 I10 High hemog lobin A1c level 476292706 R73.09 Hyperlipidemia 11399359 E78.5 Hypertensive disorder 38 085036 I10 Insomnia 012283850 G47.0 0 Low back pain 213083174 M54.5 Neuropathy 138246856 G62 .9 Type 2 tamiko betes mellitus 74464673 E11.9 Vitamin D deficiency 347 47540 E55.9 Right side sciatica 3202 158332 94299 M54.31 Disorder o f vitamin B12 494226830 D51.1 [id number] ELIANA Peraza (Adult Med) [address] [place] [address]-160 0 01/28/2021 10:17:37 01/28/2021 10:39:29 Low back pain 061964238 M54.5 Disorder o f vitamin B12 307082613 D51.1 [id number] ELIANA Peraza (Adult Med) [address] [place] [address] [id number] 0 05/24/2021 15:02:03 05/24/2021 15:32:08 Low back pain 989276812 M54.5 [id number] ABNER Wood (Adult Med) [address] [place] [address] [id number] 0 07/07/2021 11:42:14 07/07/2021 15:08:35 Bilateral hip joint pain 8181852866 8987909 M25.551 Low back pain 481137886 M54.5 Type 2 tamiko betes mellitus 34140550 E11.9 Disorder o f vitamin B12 103598504 D51.1 Allergic rhinitis 938375 04 J30.1 Shipley's esophagus 3029 22997 K22.70 minimal from upper endoscopy 4 months ago.... they want to see her in 3 years Chronic ob structive pulmonary disease 67315216 J44.9 Chronic sciatica 3663158 01 M54.31 Essential hypertension 17357170 I10 Gastroesop hageal reflux disease 393656244 K21.9 Hip pain 68828874 M25.55 9 Hyperlipidemia 12303124 E78.5 Hypertensive disorder 38 389909 I10 Insomnia 514311152 G47.0 0 Neuropathy 142151889 G62 .9 Osteoporosis 12403169 M8 1.0 Peripheral nerve disease 836015401 G64 Prolapsed lumbar intervertebral disc 675426631 M51.26 Vitamin D deficiency 347 04340 E55.9 [id number] ELIANA Garcia (Adult Med) [address] [place] [address] 84628-596 0 09/01/2021 15:52:55 09/02/2021 19:48:38 Disorder of vitamin B12 825051007 D51.1 Administra tion of influenza vaccine 48844045 Z23 Low back pain 486420577 M54.50 [id number] ELIANA Peraza (Adult Med) [address] [place] [address] [id number] 0 11/08/2021 10:57:07 11/08/2021 11:14:26 Low back pain 424902929 M54.50 [id number] ABNER Wood (Adult Med) [address] [place] [address] [id number] 0 12/14/2021 11:14:03 12/15/2021 07:57:16 Vulvovaginitis 38106737 N76.0 Sinusitis 44213857 J32.9 Low back pain 390510090 M54.50 Tobacco user 716699727 Z 72.0 Disorder o f vitamin B12 443755942 D51.1 Allergic rhinitis 322807 04 J30.1 Chronic ob structive pulmonary disease 44731285 J44.9 Essential hypertension 64659990 I10 Gastroesop hageal reflux disease 526835313 K21.9 High hemog lobin A1c level 627276089 R73.09 Hip pain 00179587 M25.55 9 Hypertensive disorder 38 835933 I10 Insomnia 906855440 G47.0 0 Neuropathy 500448032 G62 .9 Osteoporosis 82353611 M8 1.0 Peripheral nerve disease 741097209 G64 Prolapsed lumbar intervertebral disc 889244591 M51.26 Type 2 tamiko betes mellitus 27926759 E11.9 Vitamin D deficiency 347 21418 E55.9 [id number] ABNER Wood (Adult Med) [address] [place] [address] [id number] 0 05/09/2022 16:47:15 05/10/2022 12:10:53 Type 2 diabetes mellitus 11756497 E11.9 Prolapsed lumbar intervertebral disc 056848833 M51.26 HIV screening 476892391 Z11.4 Shipley's esophagus 3029 34315 K22.70 minimal from upper endoscopy 4 months ago.... they want to see her in 3 years Venous varices 289194954 I83.90 Vitamin D deficiency 347 39315 E55.9 Low back pain 528171946 M54.50 Disorder o f vitamin B12 457467619 D51.1 Sinusitis 21211565 J32.9 Vulvovaginitis 50373811 N76.0 Allergic rhinitis 272914 04 J30.1 Bilateral hip joint pain 5329753125 8589937 M25.551 Chronic ob structive pulmonary disease 36460485 J44.9 Chronic sciatica 9576275 01 M54.31 Essential hypertension 64632046 I10 Gastroesop hageal reflux disease 694860112 K21.9 Hyperlipidemia 60916943 E78.5 Hypertensive disorder 38 677509 I10 Insomnia 687389896 G47.0 0 Neuropathy 176239770 G62 .9 Osteoporosis 62166594 M8 1.0 Peripheral nerve disease 757561083 G64 [id number] ABNER Wood (Adult Med) [address] [place] [address] [id number] 0 08/08/2022 15:36:02 08/09/2022 13:53:42 Allergic rhinitis 29560747 J30.1 Bilateral hip joint pain 1444142570 8943756 M25.551 Chronic ob structive pulmonary disease 53754107 J44.9 Chronic sciatica 9353177 01 M54.31 Disorder o f vitamin B12 489835292 D51.1 Hiatal hernia 47084474 K 44.9 High hemog lobin A1c level 633263854 R73.09 Hyperkalemia 29433925 E8 7.5 Hyperlipidemia 81851190 E78.5 Insomnia 354622287 G47.0 0 Muscle atrophy 18559278 M62.50 Neuropathy 181547288 G62 .9 Osteoporosis 46215717 M8 1.0 Peripheral nerve disease 476402455 G64 Sinusitis 55608854 J32.9 Administra tion of influenza vaccine 12542365 Z23 Nicotine dependence 5629 4008 Z87.891 Vitamin D deficiency 347 40338 E55.9 Type 2 tamiko betes mellitus 50474829 E11.9 [id number] MD Zay Cui (Adult Med) [address] [place] [address] 72370-897 0 12/12/2022 13:50:42 12/13/2022 10:08:34 Chronic sciatica 165388418 M54.31 Right lower back pain with sciatica, agreed for the MRI and spine surgeon referral, had 6 weeks PT and pain management epidural injection. Administra tion of pneumococcal vaccine 36079503 Z23 She tolerated shot well. Statin declined 50092604 0 Z53.20 Refused 12/12/22. Administra tion of diphtheria, pertussis, and tetanus vaccine 813517820 Z23 Refused 12/12/22. SARS-CoV-2 mRNA vaccine declined 1662086312 Z28.21 Refused 12/12/22. [id number] Wil Mclaughlin MD [facility] (Adult Med) [address] [place] [address] [phone] 0 04/06/2023 11:10:33 04/09/2023 14:24:32 Abnormal weight loss 070072874 R63.4 unintentio nal weight loss. on 12-12-22 131 LB/BMNI 22..5, as . weight 125 LB/BMI 21.5, despite good , regular appetite Chronic ob structive pulmonary disease 08579926 J44.9 Stable. Smoker 16485421 F17.200 half luis fernando/day for at least 50 years Type 2 tamiko betes mellitus 71856211 E11.9 Diabetic diet, exercise. has enough med refill. A1c is 6.7% , she is informed. Insomnia [id number] G47.0 0 She agreed to try med as ordered. Mammogram declined [id number] Z53.20 She declined 04-06-23. [id number] Wil Mclaughlin MD [facility] (Adult Med) [address] [place] [address] [phone] 07/16/2023 14:25:33 07/17/2023 11:38:00 Chronic sciatica [id number] M54.31 Right lower back pain with sciatica, agreed for the MRI and spine surgeon referral, had 6 weeks PT and pain management epidural injection. Administra tion of pneumococcal vaccine 15082866 Z23 She tolerated shot well. Statin declined [id number] 0 Z53.20 Refused 12/12/22. Administra tion of diphtheria, pertussis, and tetanus vaccine 966187299 Z23 Refused 12/12/22. SARS-CoV-2 mRNA vaccine declined [id number] Z28.21 Refused 12/12/22. Chronic ob structive pulmonary disease 81517565 J44.9 Stable. Smoker 85660108 F17.200 half luis fernando/day for at least 50 years. Her sinal surgeon won't operate on her until she quit smoking. [id number] ELIANA Meneses (Adult Med) [address] [place] [address] [phone] 08/27/2023 15:52:21 08/28/2023 14:58:11 Administration of influenza vaccine 32322392 Z23 [id number] MD Zay Cui (Adult Med) [address] [place] [address] [phone] 12/17/2023 11:38:38 12/19/2023 10:21:31 Pain in left arm 881006696 M79.602 Discussed with patient she agreed for the med as ordered. Malaise and fatigue 2717 49536 R53.81 R53.83 Lack pf energy lately Urinary tr act infectious disease 57329644 N39.0 Will obtain urine culture and empirical ATB. Smoker 05525031 F17.200 half luis fernando/day for at least 50 years. Her sinal surgeon won't operate on her until she quit smoking. She is aware of smoking can cause permanent emphysema, cancer of lung, or mouth or throat and other disease. She agreed fot the LDCT screening. She smokes half luis fernando/day for 50 years. 12-17-2023 Chest pain 88078938 R07. 9 She is going to see her cardiologi st, Dr. Elida Kim. Also she is advised to go to any close ER any time for any concern, she agreed. Type 2 tamiko betes mellitus 52258443 E11.9 Diabetic diet, exercise. has enough med refill. A1c is 6.7% , she is informed. [id number] MD Zay Puente (Adult Med) [address] [place] [address] [place] [phone] 04/08/2024 11:16:50 04/09/2024 16:27:18 Body mass index 20-24 - normal 310848504 Z68.20 Type 2 tamiko hernandez mellitus 99027624 E11.9 Will check a Hemoglobin A1C to see how well controlled her diabetes is. Had a chem panel in November which was normal with borderline GFR. Will check urine for protein. Gastric ulcer 596378055 K25.9 History of ulcer on endoscopy. Will check a CBC. Hyperlipidemia 68253511 E78.5 Will return for a fasting lipid. Serum thyr oid stimulating hormone level outside reference range 130388259 R89.1 History of abnormal TSH with normal free T4. Will repeat a TSH due to weight loss. Weight loss 25261044 R63 .4 Unexplaine d weight loss. Checking a TSH. Will check a Sed rate. Follow up in three months. Continue to monitor weight. Foot pain 76452169 M79.6 72 trauma, pain and swelling dorsal lateral foot Osteoporosis 90389994 M8 1.0 Last bone density was in 2019. Taking Alendronat e. Will repeat bone density. Screening for malignant neoplasm of breast 557669664 Z12.39 Due for mammogram. Left side sciatica 11961 47134 76530 M54.32 Will give her a short course of Prednisone and a Toradol injection to help her with symptoms for her vacation and then she will follow up for her injection. We discussed the side effects of steroids including GI irritation , elevated blood pressure, and elevated glucose. Patient is aware. We discussed the likely imminent surgery if injections do not continue to help. Will work on smoking cessation at follow up. Nicotine user 004721108 Z72.0 Will work on smoking cessation after vacation at follow up visit. Chronic ob structive pulmonary disease 78581660 J44.9 [id number] MD Zay Puente (Adult Med) [address] [place] [phone] 07/14/2024 11:19:47 07/22/2024 11:13:02 Administration of influenza vaccine 04959162 Z23 Administra tion of pneumococcal vaccine 70338975 Z23 Right side sciatica 3202 [id number] 28042 M54.31 MRI done a year ago recommende d neurosurge on referral. Had laminectom y August/ ecember 2022. Since then has been getting pain injections . Has history of ulcer so unable to take anti-infla mmatories or steroids. Trying to avoid narcotics on any kind of a regular basis. We have been working on smoking cessation to prepare her for any surgery that may be necessary for better quality of life. Will give her short course of narcotics to help her with pain for her birthday weekend. Nicotine user 891233903 Z72.0 Will work on smoking cessation after vacation at follow up visit. Hyperlipidemia 67382291 E78.5 Will return for a fasting lipid. Type 2 tamiko betes mellitus 77102416 E11.9 Continue Metformin one tab po q d. Will call with fasting glucose values in two to thee weeks. Osteoporosis 20962232 M8 1.0 Last bone density was in 2019. Taking Alendronat e. Gastric ulcer 463508812 K25.9 History of ulcer. Continue Pantoprazo le. Health Concerns Section Related Observation LastModified by Organization Detai ls LastModified Time None Recorded Concern Status LastModified by Organization Details LastModified Time None Recorded Advance Directives Directive N: Payers Encounter Date Sequence Insurance Name Policy Number Policy Giles Covered Member ID Giles Member ID Guarantor Name 07/16/2023 1 [facility] (MEDICARE REPLACEMENT/A DVANTAGE - PPO) [id number] Devorah Roland Amaral [id number] [facility] 08/27/2023 1 [facility] (MEDICARE REPLACEMENT/A DVANTAGE - HMO) [id number] Devorah Amaral [id number] [facility] 12/17/2023 1 [facility] (MEDICARE REPLACEMENT/A DVANTAGE - HMO) [id number] Devorah Amaral [id number] [facility] 04/08/2024 1 [facility] (MEDICARE REPLACEMENT/A DVANTAGE - HMO) [id number] Devorah Amaral [id number] [facility] 07/14/2024 1 [facility] (MEDICARE REPLACEMENT/A DVANTAGE - HMO) [id number] [facility] Roland Amaral [id number] [facility] Notes Date Note Type Note Provider Name and Address Organization Details Recorded Time 07/16/2023 text/html Office visit, wi th living in boyfriend. allergic t0 azithromycin. codeine and tramadol. chronic lower back pain radiating to hips. still smokes. used to get steroid injection. Failed to PT and epidural injection at pain management, Awaiting she to quit smoking before considering spine surgery she was so advised by her spine surgeon. Copy of MRI of lumbar spine provided to her today. multiple level of sppinal stenosis. Wil Mclaughlin MD Attn: Accounting[address] [facility], [place], [address], [facility] 07/16/2023 17:49:07 12/17/2023 text/html Office visit, ca me with [employer]. C/C 1. left arm sore , no injury for months. right-handed. 2. Fatigue, and malaise lately.3. Strong odor in urinating. also a smoker. 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 Regular appetite and bowel habit. ROS as note di9n HPI. Wil Mclaughlin MD Attn: [address]ing[address] [facility], [place], [address], [facility] 12/17/2023 15:44:30 04/08/2024 text/html left foot is swollen, twisted it in a hole in the yard about a week ago, was able to walk on it right after the injury but was painful to walk on the next day, noticed the swelling the next day, not as sore as it was, history of right side sciatica, gets injections, has an appointment April 16 for an injection, going on vacation this weekend and would like something to help the pain for her vacation, history of sciatica diagnosed four or five years ago, injections have helped until the last one, last time he did it it did not help, hip was sore for weeks, planning on telling him that at her follow up appointment, mother was on hospice so couldn't go back and tell him sooner, next step is surgery if injections do not help, needs to quit smoking to have surgery, has cut back, is down to less than a pack a day, sometimes right leg is weak, has to rub it, loosing weight and doesn't know why, was diagnosed with diabetes a couple years ago, changed eating then, a year ago started noticing loosing weight and does not know why, no chest pain, no shortness of pain, no nausea, no stomach pain, no constipation or diarrhea, no blood in stool or dark black stool, had colonoscopy in last two years, had ulcer, quit Pravastatin because of muscle cramps, had coffee this morning, taking Alendronate Haily Baron MD Attn: Accounting[address] [facility], [place], [address], [facility] 04/08/2024 17:47:01 07/14/2024 text/html doing well, was started on Januvia and then Actos, new medicine caused glucose to drop too low, glucose was in the sixties and was symptomatic, quit taking both medicines couple weeks ago, went back to Metformin and only is taking it once a day because the low sugar scared her, sugar 105 this morning, stopped the other two medications and decreased Metform two weeks ago, taking Metformin one a day, continues with pain in right hip, symptoms worse, hurts in hip socket, tries to stretch, has had that pain in the last two or three months, sciatic nerve has been bothering her for years, saw a surgeon some time ago and was told she needed surgery but couldn't have it until she quit smoking, birthday this weekend and would like to have some better pain control, has tried physical therapy and injections for sciatic nerve, did not get MRI of foot but it is better now, takes Ibuprofen and Tylenol arthritis but mostly Tylenol arthritis because has history of ulcer so has to limit Ibuprofen, no chest pain, no shortness of breath, Haily Baron MD Attn: Accounting[address] [facility], [place], [address], [facility] 2024 12:27:31 OBGyn Episode No OBEpisode recorded.
== END 2024-11-25 11:31 | disposition home or self-care (01) ==
LOC: ANHIMG 11:34
PROVIDERS: PCP Emergency Medicine; Visit Provider Emergency Medicine
DX: M25.551 Pain in right hip (principal)
CPT/HCPCS: 73502